=== PATIENT | female | born 1985 | race Two or more races ===

== ENCOUNTER 2017-01-31 13:01 | Emergency (ER) | payer BC ==
[~2017-01-31] VITALS: Ht 170.2 cm; Wt 45.4 kg
[2017-01-31 13:06] VITALS: BP_SYST 160
[2017-01-31] MEDS ORDERED: NACL 0.9% 1,000 ML IV ONE ×2 (13:17→13:30)
--- NOTE | 2017-01-31 13:17 | NUR ---
Patient to ER bed 05 to gown for evaluation. Side rails up.
--- NOTE | 2017-01-31 13:18 | NUR ---
Pt complains of severe abdominal pain for the past 3 days. Pt states she has been having this feeling for 5 years and pain to abdomen "comes and goes." Pt states she is constantly in and out of the hospital and now has an MRI appointment on the 11 of February to further look into abdominal issue. Pt is nauseous and has vomited today. Pt states her stool is loose but is painful when using the restroom. No other injuries/complaints per patient or noted.
--- NOTE | 2017-01-31 13:19 | NUR ---
ER Dr. Rollins at bedside examining patient.
[2017-01-31] MEDS ORDERED: HYDROmorphone 1 MG INJ. 1 MG/ML AMPUL IVP ONE ×2 (13:30→15:30)
[2017-01-31] MEDS ORDERED: ONDANSETRON HCL 4 MG/2 ML VIAL IVP ONE (13:30)
[2017-01-31 13:41] LABS: BASOPHILS # (AUTO) 0.1 K/uL (0.0-0.2); BASOPHILS % (AUTO) 1.4 % (0.0-2.0); EOSINOPHILS # (AUTO) 0.1 K/uL (0.0-0.4); EOSINOPHILS % (AUTO) 1.4 % (0.0-4.0); HEMATOCRIT 43.6 % (36-48); HEMOGLOBIN 14.9 g/dL (12.0-16.0); LYMPHOCYTES # (AUTO) 1.1 K/uL (1.0-5.5); LYMPHOCYTES % (AUTO) 18.1 % (20.5-51.5); MEAN CORPUSCULAR HEMOGLOBIN 30 pg (27-31); MEAN CORPUSCULAR HGB CONC 34 % (32-36); MEAN CORPUSCULAR VOLUME 89 fL (79.0-98.0); MONOCYTES # (AUTO) 0.3 K/uL (0.0-1.0); MONOCYTES % (AUTO) 5.4 % (1.7-9.3); NEUTROPHILS # (AUTO) 4.3 K/uL (1.8-7.7); NEUTROPHILS % (AUTO) 73.7 % (40.0-70.0); PLATELET COUNT (AUTO) 169 K/uL (130-430); RED BLOOD CELL COUNT(AUTO) 4.89 MIL/uL (4.2-6.2); RED CELL DISTRIBUTION WIDTH 12.6 % (9.0-15.0); WHITE BLOOD COUNT (AUTO) 5.9 K/uL (4.8-10.8)
--- NOTE | 2017-01-31 13:46 | NUR ---
medications were given, pt tolerated well. No adverse reaction, will continue to monitor.
[2017-01-31 13:49] LABS: CALCIUM 9.7 mg/dL (8.4-11.0); CREATININE 0.54 mg/dL (0.55-1.30); POTASSIUM 4.2 mmol/L (3.5-5.1)
[2017-01-31 13:53] LABS: PROTHROMBIN TIME 10.2 SECS (9.5-12.5)
[2017-01-31 13:54] LABS: ALBUMIN 4.7 g/dL (3.4-4.8); TOTAL BILIRUBIN 0.7 mg/dL (0.0-1.0)
[2017-01-31 14:03] LABS: BILIRUBIN,URINE 1+ (NEGATIVE); BLOOD, URINE 2+ (NEGATIVE); CLARITY/URINE CLEAR (CLEAR); COLOR,URINE YELLOW (YELLOW); GLUCOSE,URINE NEGATIVE (NEGATIVE); KETONES,URINE TRACE (NEGATIVE); LEUKOCYTE ESTERASE ,URINE TRACE (NEGATIVE); NITRITE, URINE NEGATIVE (NEGATIVE); PH,URINE 5.5 (5.0-8.0); PROTEIN URINE TRACE (NEGATIVE); UROBILINOGEN,URINE 0.2 (0.2-1.0)
[2017-01-31 14:11] LABS: BACTERIA,URINE FEW /HPF (None Seen)
[2017-01-31 14:12] LABS: MUCUS,URINE 1+ /LPF (None Seen)
[2017-01-31] MEDS ORDERED: DIPHENHYDRAMINE INJ 50 MG/ML VIAL IVP ONE (14:15)
--- NOTE | 2017-01-31 14:16 | NUR ---
Pt complained of being itchy, Dr. Rollins made aware. MD ordered medication for patient.
--- NOTE | 2017-01-31 14:30 | NUR ---
Medication was given, pt tolerated well. No adverse reaction, will continue to monitor.
--- NOTE | 2017-01-31 15:02 | NUR ---
ER Dr. Rollins at bedside explaining results to patient.
--- NOTE | 2017-01-31 15:54 | NUR ---
Patient given written and verbal discharge instructions and verbalizes understanding. ER MD discussed with patient the results and treatment provided. Patient in stable condition. ID arm band removed. IV catheter removed intact and dressing applied, no active bleeding. Rx of Zofran, Tylenol with codeine given. Patient educated on pain management and to follow up with PMD. Pain Scale 4. Dr. Rollins is aware, pain medications given here and prescription home. Informed family member patient was recently given pain medication and is fall risk. Instructed family member to assist patient with ambulation to car and at home. Family member verbalized understanding. Opportunity for questions provided and answered.
== END 2017-01-31 15:54 | disposition home or self-care (01) ==
LOC: MERGE 13:01 → SED 13:01
DX: G89.29 Other chronic pain (principal); R10.9 Unspecified abdominal pain; Z88.5 Allergy status to narcotic agent; Z90.49 Acquired absence of other specified parts of digestive tract
CPT/HCPCS: 36415; 80053; 81000; 81025; 82150; 83690; 85025; 85610; 85730; 87086; 96361; 96374; 96375; 96376; 99284; J1170; J1200; J2405; J7030

== ENCOUNTER 2017-02-01 03:11 | Emergency (ER) | payer BC ==
[~2017-02-01] VITALS: Ht 170.2 cm; Wt 56.7 kg
[2017-02-01 03:23] VITALS: BP_SYST 134
--- NOTE | 2017-02-01 04:17 | NUR ---
Patient to ER bed 7 to gown for evaluation. Side rails up. Report given to SHIRA VALE.
--- NOTE | 2017-02-01 04:18 | NUR ---
PT IN BED 7 WITH C/O ABDOMINAL PAIN, DR ESCOBEDO AWARE.
--- NOTE | 2017-02-01 04:20 | NUR ---
ER at bedside examining patient.
[2017-02-01] MEDS ORDERED: ONDANSETRON HCL 4 MG/2 ML VIAL IVP ONE (04:30)
[2017-02-01] MEDS ORDERED: NACL 0.9% 1,000 ML IV ONE (04:30)
[2017-02-01] MEDS ORDERED: HYDROmorphone 1 MG INJ. 1 MG/ML AMPUL IVP ONE (04:30)
--- NOTE | 2017-02-01 04:30 | NUR ---
# 20 gauge angiocath placed to LAC. Use of asceptic technique. Opsite placed over site. Blood return noted. Blood for lab drawn from site. Flushed with 10 cc of normal saline. No evidence of infiltration noted. Patient tolerated well.
--- NOTE | 2017-02-01 05:00 | NUR ---
MEDICATION GIVEN PER MD ORDERS , TOLERATED WELL.
--- NOTE | 2017-02-01 05:05 | NUR ---
DR ESCOBEDO AWARE.
--- NOTE | 2017-02-01 05:05 | NUR ---
PT C/O ITCHING STATED "I FORGOT TO TELL THE DOCTOR, DILAUDID MAKES ME ITCH, CAN I HAVE BENADRYL PLEASE?"
[2017-02-01] MEDS ORDERED: DIPHENHYDRAMINE INJ 50 MG/ML VIAL IVP ONE (05:15)
--- NOTE | 2017-02-01 06:15 | NUR ---
Patient resting quietly. No acute distress noted. Vital signs within normal range.
[2017-02-01] MEDS ORDERED: KETOROLAC TROMETHAMINE 60 MG/2 ML VIAL IM ONE (07:15)
--- NOTE | 2017-02-01 07:18 | NUR ---
Pt was given pain medication, pt tolerated well. No adverse reaction, will continue to monitor.
--- NOTE | 2017-02-01 07:41 | NUR ---
Pt does not want to go home because she is scared she will be in pain again. Informed Dr. Jaimes. Dr. Jaimes spoke with admitting doctor and admitting doctor wants a CT scan for patient. Patient refused CT scan, due to her physician advising her not to get anymore done. Pt states she has an MRI appointment on February 11.
--- NOTE | 2017-02-01 07:42 | NUR ---
ER Dr. Jaimes at bedside speaking with patient.
--- NOTE | 2017-02-01 08:28 | NUR ---
Patient given written and verbal discharge instructions and verbalizes understanding. ER MD discussed with patient the results and treatment provided. Patient in stable condition. ID arm band removed. IV catheter removed intact and dressing applied, no active bleeding. No Rx given. Patient educated on pain management and to follow up with PMD. Pain Scale 4. Dr. Jaimes is aware, Medications were given here. Pt was in ER yesterday and was given prescriptions, advised patient to go to pharmacy and get prescriptions for pain. Opportunity for questions provided and answered.
[2017-02-01] MEDS ORDERED: LIDOCAINE 1%, 20 ML MDV 20 ML ONE (16:28)
== END 2017-02-01 08:28 | disposition home or self-care (01) ==
LOC: SED 03:11 → MERGE 03:11 → SED 08:28
DX: G89.29 Other chronic pain (principal); R10.84 Generalized abdominal pain; R11.0 Nausea; Z90.49 Acquired absence of other specified parts of digestive tract; Z88.5 Allergy status to narcotic agent
CPT/HCPCS: 96361; 96372; 96374; 96375; 99284; J1170; J1200; J1885; J2001; J2405; J7030

== ENCOUNTER 2017-02-05 12:42 | Emergency (ER) | payer BC ==
[~2017-02-05] VITALS: Ht 170.2 cm; Wt 56.7 kg
[2017-02-05 12:49] VITALS: BP_SYST 144
--- NOTE | 2017-02-05 13:00 | NUR ---
BROUGHT BACK TO BED #7 AND TRIAGED. REPORT GIVEN TO JENNIE
--- NOTE | 2017-02-05 13:00 | NUR ---
Pt report received from SHIRA Dunaway. Pt c/o mid abdominal pain with nausea x 3 years, worse today. No active vomiting noted. Family member at bedside.
[2017-02-05] MEDS ORDERED: NACL 0.9% 1,000 ML IV ONE (13:24)
[2017-02-05] MEDS ORDERED: DIPHENHYDRAMINE INJ 50 MG/ML VIAL IVP ONE (13:30)
--- NOTE | 2017-02-05 13:50 | NUR ---
# 20 gauge angiocath placed to . Use of asceptic technique. Opsite placed over site. Blood return noted. Blood for lab drawn from site. Flushed with 10 cc of normal saline. No evidence of infiltration noted. Patient tolerated well.
[2017-02-05 14:30] LABS: BASOPHILS % (AUTO) 0.4 % (0.0-2.0); EOSINOPHILS # (AUTO) 0.1 K/uL (0.0-0.4); EOSINOPHILS % (AUTO) 1.8 % (0.0-4.0); HEMATOCRIT 44.4 % (36-48); HEMOGLOBIN 14.6 g/dL (12.0-16.0); LYMPHOCYTES # (AUTO) 1.2 K/uL (1.0-5.5); LYMPHOCYTES % (AUTO) 20.1 % (20.5-51.5); MEAN CORPUSCULAR HEMOGLOBIN 30 pg (27-31); MEAN CORPUSCULAR HGB CONC 33 % (32-36); MEAN CORPUSCULAR VOLUME 92 fL (79.0-98.0); MONOCYTES # (AUTO) 0.4 K/uL (0.0-1.0); MONOCYTES % (AUTO) 6.4 % (1.7-9.3); NEUTROPHILS # (AUTO) 4.3 K/uL (1.8-7.7); NEUTROPHILS % (AUTO) 71.3 % (40.0-70.0); PLATELET COUNT (AUTO) 204 K/uL (130-430); RED BLOOD CELL COUNT(AUTO) 4.84 MIL/uL (4.2-6.2); RED CELL DISTRIBUTION WIDTH 12.6 % (9.0-15.0)
[2017-02-05] MEDS ORDERED: ONDANSETRON HCL 4 MG/2 ML VIAL IVP ONE (14:30)
[2017-02-05] MEDS ORDERED: HYDROmorphone 1 MG INJ. 1 MG/ML AMPUL IVP ONE (14:30)
[2017-02-05 14:45] LABS: CALCIUM 9.3 mg/dL (8.4-11.0); CREATININE 0.58 mg/dL (0.55-1.30); POTASSIUM 3.5 mmol/L (3.5-5.1)
[2017-02-05 14:49] LABS: ALBUMIN 4.7 g/dL (3.4-4.8); TOTAL BILIRUBIN 0.7 mg/dL (0.0-1.0)
[2017-02-05 15:18] VITALS: BP_SYST 138
--- NOTE | 2017-02-05 15:18 | NUR ---
Patient given written and verbal discharge instructions and verbalizes understanding. ER MD discussed with patient the results and treatment provided. Patient in stable condition. ID arm band removed. IV catheter removed intact and dressing applied, no active bleeding. Rx of Zofran and Protonix given. Patient educated on pain management and to follow up with PMD. Pain Scale 3/10. Opportunity for questions provided and answered.
== END 2017-02-05 15:18 | disposition home or self-care (01) ==
LOC: SED 12:42
DX: R10.9 Unspecified abdominal pain (principal); Z88.5 Allergy status to narcotic agent
CPT/HCPCS: 36415; 74000; 76700; 80053; 83690; 85025; 96361; 96374; 96375; 99285; J1170; J1200; J2405; J7030

== ENCOUNTER 2017-08-01 05:17 | Inpatient (IN) | payer BC ==
[~2017-08-01] VITALS: Ht 170.2 cm; Wt 60.0 kg
--- NOTE | 2017-08-01 05:19 | NUR ---
Patient to ER bed 7 to gown for evaluation. Side rails up. Report given to Nicolette SILVA.
[2017-08-01 05:20] VITALS: BP_SYST 153
[2017-08-01] MEDS ORDERED: NACL 0.9% 1,000 ML IV ONE ×2 (05:20→05:45)
--- NOTE | 2017-08-01 05:25 | NUR ---
Patient to ER C/O severe generalized abdominal pain non/radiating 10/10and nausea with dry heaving, foamy scant sputum. Patient states that last time she smiked cannabis was 2 months ago but started again 2 days ago. Denies constipation or diarrhea. AAOx4, unlabored [id number], moderate distress d/t dry heaving.
--- NOTE | 2017-08-01 05:26 | NUR ---
ER MD Gurrola at bedside evaluating the patient
[2017-08-01] MEDS ORDERED: ONDANSETRON HCL 4 MG/2 ML VIAL IVP ONE (05:30)
[2017-08-01] MEDS ORDERED: KETOROLAC TROMETHAMINE 30 MG VIAL IVP ONE (05:30)
--- NOTE | 2017-08-01 05:45 | NUR ---
# 22 gauge angiocath placed to left ac. Use of asceptic technique. Opsite placed over site. Blood return noted. Blood for lab drawn from site including blood cultures and lactic acid. Flushed with 10 cc of normal saline. No evidence of infiltration noted. Patient tolerated well.
[2017-08-01 06:00] LABS: BASOPHILS # (AUTO) 0.1 K/uL (0.0-0.2); BASOPHILS % (AUTO) 1.3 % (0.0-2.0); EOSINOPHILS # (AUTO) 0.2 K/uL (0.0-0.4); EOSINOPHILS % (AUTO) 1.6 % (0.0-4.0); HEMATOCRIT 45.2 % (36-48); HEMOGLOBIN 15.6 g/dL (12.0-16.0); LYMPHOCYTES # (AUTO) 1.6 K/uL (1.0-5.5); LYMPHOCYTES % (AUTO) 16.4 % (20.5-51.5); MEAN CORPUSCULAR HEMOGLOBIN 31 pg (27-31); MEAN CORPUSCULAR HGB CONC 35 % (32-36); MEAN CORPUSCULAR VOLUME 90 fL (79.0-98.0); MONOCYTES # (AUTO) 0.9 K/uL (0.0-1.0); MONOCYTES % (AUTO) 8.8 % (1.7-9.3); NEUTROPHILS # (AUTO) 7.2 K/uL (1.8-7.7); NEUTROPHILS % (AUTO) 71.9 % (40.0-70.0); PLATELET COUNT (AUTO) 238 K/uL (130-430); RED BLOOD CELL COUNT(AUTO) 5.01 MIL/uL (4.2-6.2); RED CELL DISTRIBUTION WIDTH 12.3 % (9.0-15.0)
[2017-08-01 06:10] LABS: BARBITURATE, URINE NEGATIVE (NEG <=200); BENZODIAZEPINE, URINE NEGATIVE (NEG <=150); CANNABINOID, URINE POSITIVE (NEG <=50); COCAINE, URINE NEGATIVE (NEG <=150); METHAMPHETAMINES SCREEN,URINE NEGATIVE (NEG <=500); OPIATE, URINE NEGATIVE (NEG <=100); PHENCYCLIDINE SCREEN,URINE NEGATIVE (NEG <=25); UR TRICYCLIC ANTIDEPRESSANTS NEGATIVE (NEG <=300); URINE AMPHETAMINE NEGATIVE (NEG <=500); URINE METHADONE NEGATIVE (NEG <=200); URINE OXYCODONE SCREEN NEGATIVE (NEG <=100); URINE PROPOXYPHENE SCREEN NEGATIVE (NEG <=300)
[2017-08-01] MEDS ORDERED: DIPHENHYDRAMINE INJ 50 MG/ML VIAL IVP ONE (06:15)
--- NOTE | 2017-08-01 06:15 | NUR ---
Patient C/O pruritus. No rash noted. ER MD Gurrola aware
[2017-08-01 06:27] LABS: CALCIUM 10.2 mg/dL (8.4-11.0); CREATININE 0.86 mg/dL (0.55-1.30); POTASSIUM 3.2 mmol/L (3.5-5.1)
[2017-08-01] MEDS ORDERED: PROCHLORPERAZINE EDISYLATE 10 MG/2 ML VIAL IVP ONE (06:30)
--- NOTE | 2017-08-01 06:31 | NUR ---
patient C/O unrelieved abdominal pain. States "give me something for pain" rates pain 11/16 abdominal generalized. Addendum: 08/01/17 at 0641 by RICK LUIS dunn
[2017-08-01 06:32] LABS: TOTAL BILIRUBIN 0.8 mg/dL (0.0-1.0)
--- NOTE | 2017-08-01 07:01 | NUR ---
Patient care endorsed to Peter SILVA via SBAR
[2017-08-01] MEDS ORDERED: fentaNYL CITRATE/PF 100 MCG/2 ML AMP IVP ONE (07:15)
--- NOTE | 2017-08-01 07:20 | NUR ---
Medication was given, pt tolerated well. No adverse reaction, will continue to monitor.
--- NOTE | 2017-08-01 08:00 | NUR ---
Pt went to radiology in stable condition.
--- NOTE | 2017-08-01 08:05 | NUR ---
Pt returned from radiology in stable condition.
--- NOTE | 2017-08-01 08:08 | NUR ---
Patient will be admitted to care of Dr. Garsia. Admitted to Med Surg unit. Will go to room 108 C. Belongings list completed. Summary report printed. Report will be given at bedside.
--- NOTE | 2017-08-01 08:20 | NUR ---
ADMISSION NOTE Received patient from ER via eladio, received report from JEN SILVA. Patient admitted with diagnosis of NAUSEA AND VOMITING under the care of Dr. Garsia. Patient oriented to hospital routine, call light, toileting and safety-patient verbalized understanding.
[2017-08-01 08:24] VITALS: BP_SYST 137
[2017-08-01] MEDS ORDERED: ESCI10TA PO (08:38)
--- NOTE | 2017-08-01 09:14 | NUR ---
Dr. Garsia Paged Dr. Garsia for pain medication orders. Patient is awake and alert, in alot of pain.report was endorsed by Admission nurse. Patient educated on safety due to receiving pain medication in ER. Patient educated ecdis n navigation operator light for assistance. call light is with. Patient is close to nurses station. waiting for call back.
[2017-08-01] MEDS ORDERED: ACETAMINOPHEN 325 MG TABLET PO PRN ×2 (09:30)
[2017-08-01] MEDS ORDERED: HYDROmorphone 1 MG INJ. 1 MG/ML AMPUL IVP PRN (09:30)
[2017-08-01] MEDS: HYDROmorphone 2 MG/ML VIAL IVP PRN ×3 (09:52→18:46)
--- NOTE | 2017-08-01 10:18 | NUR ---
Consult MD: GI Dr. Chavez called (dr. garcia admissions advisor) Consult reason nausea/vomiting spoke to monica dialed [phone] Garsia
[2017-08-01] MEDS: D5NS 1,000 ML IV SCH (10:21)
--- NOTE | 2017-08-01 10:34 | NUR ---
MADE AWARE THAT k 3.2 NO ORDERS WERE RECEIVED. PATIENT APPEARS TO BE RESTING NO SIGNS OF ANY DISTRESS BREATHING IS EQUAL AND NON LABORED. PATIENT WAS EDUCATED ON PAIN MEDICATION SIDE EFFECTS ON ADMINISTRATION ALL SAFETY PRECAUTIONS ARE IN PLACE. CALL LIGHT IS WITH HER. NO OTHER NEEDS AT THIS TIME.
[2017-08-01 11:51] VITALS: BP_SYST 166
--- NOTE | 2017-08-01 12:10 | NUR ---
PAIN MEDICATION/PAGING Patient complains of pain medicated per order. Patient educated on side effects. Patient complains of itching. Paging Dr. Garsia for order. Patient educated director of national sales light for assistance. Call light is with her. Patient has no other needs at this time. Patient is close to nurses station. Patient denies any SOB, breathing is equal and no labored. will continue to monitor. Addendum: 08/01/17 at 1253 by Linnea Gracia RN [id number] Garsia will follow through, patient is currently sleeping will continue to monitor.
[2017-08-01] MEDS ORDERED: DIPHENHYDRAMINE INJ 50 MG/ML VIAL IM PRN (12:15)
--- NOTE | 2017-08-01 13:20 | NUR ---
Nausea/itching Patient complains of nausea and itching. Medicated per order. Patient is awake and alert, breathing is equal and non labored. Patient educated to use call light for assistance, call light is with her. Patient has all safety precautions in place. Patient is close to nurses station no other needs at this time. will continue to monitor.
[2017-08-01] MEDS: DIPHENHYDRAMINE INJ 50 MG/ML VIAL IVP PRN ×2 (13:21→20:41)
[2017-08-01] MEDS: METOCLOPRAMIDE HCL 10 MG/2 ML VIAL IVP PRN (13:27)
[2017-08-01 15:11] VITALS: BP_SYST 124
--- NOTE | 2017-08-01 15:45 | NUR ---
Pain calling for pain medication Patient appears to be sleeping with both eyes closed breathing is equal and non labored. Patient has all safety precautions in place, call light is with her. Patient is close to nurses station. no other needs at this time. will continue to monitor. Addendum: 08/01/17 at 1943 by Linnea Gracia RN Patient called for pain medication educated after i am finished administering medication to another patient i will be in there to medicate for her pain. when i arrived to her room patient was asleep, no signs of any distress.
[2017-08-01] MEDS ORDERED: PANTOPRAZOLE SODIUM 40 MG/VIAL (PROTONIX) IVP ONE (18:30)
--- NOTE | 2017-08-01 18:50 | NUR ---
RN closing note/pain medication/ scheduled medication Patient is awake and alert, complains of pain medicated per order. Patients vital signs are stable. Patient educated on side effects, and to use call light for assistance, call light is with her. Patient has all safety precautions in place. Patient is close to nurses station. Patient is close to nurses station. Will endorse report to oncoming night nurse at bed side.
[2017-08-01 20:53] VITALS: BP_SYST 132
--- NOTE | 2017-08-01 21:25 | NUR ---
New IV Re start 22 Gauge Right F/A aseptic technique , good blood return tolerated IVF infusing as ordered .
--- NOTE | 2017-08-01 23:15 | NUR ---
BENADRYL 25 MG IVP administer for c/o itching & helpful .
[2017-08-02] MEDS: HYDROmorphone 2 MG/ML VIAL IVP PRN ×4 (00:06→20:04)
[2017-08-02 00:17] VITALS: BP_SYST 138
[2017-08-02] MEDS: D5NS 1,000 ML IV SCH ×2 (02:29→05:30)
--- NOTE | 2017-08-02 02:31 | NUR ---
Hourly Rounding patient awake HOB elevated call starks with patient using cell phone chest movement symmetrical tolerating ice chips po .
--- NOTE | 2017-08-02 02:35 | NUR ---
DILAUDID 2 MG IVP administer for general discomfort & helpful /10 & resting comfortably .
--- NOTE | 2017-08-02 05:36 | NUR ---
Patient Resting this hour is verbally responsive skin dry warm chest movement symmetrical call starks with patient .
[2017-08-02] MEDS: ONDANSETRON HCL 4 MG/2 ML VIAL IVP PRN ×2 (05:46→10:05)
[2017-08-02 06:26] LABS: BASOPHILS % (AUTO) 0.9 % (0.0-2.0); EOSINOPHILS # (AUTO) 0.1 K/uL (0.0-0.4); HEMATOCRIT 35.7 % (36-48); HEMOGLOBIN 12.7 g/dL (12.0-16.0); LYMPHOCYTES # (AUTO) 1.3 K/uL (1.0-5.5); MEAN CORPUSCULAR HEMOGLOBIN 33 pg (27-31); MEAN CORPUSCULAR HGB CONC 36 % (32-36); MEAN CORPUSCULAR VOLUME 92 fL (79.0-98.0); MONOCYTES # (AUTO) 0.6 K/uL (0.0-1.0); MONOCYTES % (AUTO) 13.3 % (1.7-9.3); NEUTROPHILS # (AUTO) 2.8 K/uL (1.8-7.7); NEUTROPHILS % (AUTO) 55.8 % (40.0-70.0); PLATELET COUNT (AUTO) 160 K/uL (130-430); RED BLOOD CELL COUNT(AUTO) 3.87 MIL/uL (4.2-6.2); RED CELL DISTRIBUTION WIDTH 12.6 % (9.0-15.0)
[2017-08-02 06:36] LABS: ALANINE AMINOTRANSFERASE 20 U/L (12-78); ALBUMIN 3.7 g/dL (3.4-4.8); ANION GAP 7 (5-15); ASPARTATE AMINOTRANSFERASE 16 U/L (10-37); CALCIUM 8.2 mg/dL (8.4-11.0); CHLORIDE 104 mmol/L (98-107); CREATININE 0.69 mg/dL (0.55-1.30); GLUCOSE 92 mg/dL (70-99); POTASSIUM 3.2 mmol/L (3.5-5.1); SODIUM SERUM 138 mmol/L (136-145); TOTAL BILIRUBIN 0.5 mg/dL (0.0-1.0); UREA NITROGEN, BLOOD 10 mg/dL (8-21)
[2017-08-02 06:39] LABS: GFR AFRICAN AMERICAN 128 mL/min (>90)
[2017-08-02 06:53] LABS: C-REACTIVE PROTEIN QUANT < 0.2 mg/dL (0-0.5)
[2017-08-02 07:00] LABS: WHITE BLOOD COUNT (AUTO) 4.8 K/uL (4.8-10.8)
--- NOTE | 2017-08-02 07:30 | NUR ---
opening note pt asleep- equal chest rise noted. call light is within reach. bed alarm in place with bed in lowest position. will continue to monitor.
[2017-08-02 07:46] LABS: ERYTHROCYTE SEDIMENTATION RATE 3 MM/HR (0-20)
[2017-08-02] MEDS: PANTOPRAZOLE SODIUM 40 MG/VIAL (PROTONIX) IVP SCH (08:39)
--- NOTE | 2017-08-02 08:39 | NUR ---
ivp protonix given at this time. no distress noted will monitor.
--- NOTE | 2017-08-02 09:57 | NUR ---
med pass pt c/o of abd pain given dilaudid 2 mg ivp administered. will reassess pain
[2017-08-02] MEDS: METOCLOPRAMIDE HCL 10 MG/2 ML VIAL IVP PRN (09:59)
[2017-08-02] MEDS: DIPHENHYDRAMINE INJ 50 MG/ML VIAL IVP PRN (10:10)
[2017-08-02 11:29] VITALS: BP_SYST 96
--- NOTE | 2017-08-02 12:30 | NUR ---
PATIENT RESTING: Patient resting quietly. No acute distress noted. Vital signs within normal range.
[2017-08-02 16:00] VITALS: BP_SYST 100
--- NOTE | 2017-08-02 16:15 | NUR ---
PATIENT RESTING: Patient resting quietly. No acute distress noted. Vital signs within normal range.
[2017-08-02] MEDS ORDERED: CITALOPRAM HYDROBROMIDE 20 MG TABLET PO ONE (17:30)
--- NOTE | 2017-08-02 19:30 | NUR ---
closing note all needs met through shift. safety maintained. care endorsed to night warehouse manager.
[2017-08-02 20:00] VITALS: BP_SYST 128
[2017-08-03] MEDS: ONDANSETRON HCL 4 MG/2 ML VIAL IVP PRN ×2 (00:39→07:36)
[2017-08-03] MEDS: HYDROmorphone 2 MG/ML VIAL IVP PRN ×2 (00:40→07:35)
--- NOTE | 2017-08-03 00:40 | NUR ---
NAUSEA/PAIN MEDICATED WITH DILAUDID FOR C/O 9/10 ABD PAIN. ZOFRAN GIVEN FOR C/O N/V.
[2017-08-03] MEDS: DIPHENHYDRAMINE INJ 50 MG/ML VIAL IVP PRN ×2 (00:55→10:02)
[2017-08-03 01:00] VITALS: BP_SYST 116
[2017-08-03] MEDS ORDERED: ONDANSETRON HCL 4 MG/2 ML VIAL IVP PRN (01:30)
[2017-08-03] MEDS: D5NS 1,000 ML IV SCH ×2 (01:30→02:24)
--- NOTE | 2017-08-03 02:55 | NUR ---
ROUNDS PATIENT RESTING IN BED. BREATHING UNLABORED ON ROOM AIR. IVF INFUSING D5NS @ 100 ML/HR ORDERED. CALL LIGHT WITHIN EASY REACH. BED ALARM ON.
--- NOTE | 2017-08-03 04:31 | NUR ---
ROUNDS PATIENT RESTING IN BED. NO DISTRESS NOTED. CALL LIGHT WITHIN EASY REACH. BED ALARM ON.
--- NOTE | 2017-08-03 07:20 | NUR ---
opening note pt in bed awake, denies any sob. pt states she has abd pain 09/16. pt still refusing bed alarm. will return to take vitals.
[2017-08-03 07:30] VITALS: BP_SYST 133
--- NOTE | 2017-08-03 07:31 | NUR ---
CLOSING NOTES PATIENT AWAKE RESTING IN BED. NO DISTRESS NOTED. NEEDS ATTENDED. IVF CONTINUOUSLY INFUSING ORDERED. CALL LIGHT WITHIN EASY REACH.
[2017-08-03] MEDS: PANTOPRAZOLE SODIUM 40 MG/VIAL (PROTONIX) IVP SCH (08:32)
--- NOTE | 2017-08-03 08:34 | NUR ---
MED PASS PROTONIX IVP GIVEN AT THIS TIME. PT STATED SHE DOES NOT WANT CELEXA- SHE WOULD LIKE TO TAKE IT IN THE EVENING- WILL INFORM MD.
[2017-08-03] MEDS ORDERED: CITALOPRAM HYDROBROMIDE 20 MG TABLET PO SCH (09:00)
--- NOTE | 2017-08-03 10:04 | NUR ---
med pass benadryl given for itchiness. safety maintained. will continue to monitor.
[2017-08-03 10:47] VITALS: BP_SYST 128
[2017-08-03 12:20] VITALS: BP_SYST 128
== END 2017-08-03 11:27 | disposition home or self-care (01) | DRG 918 ==
LOC: SED 05:17 → SMU 07:58
PROVIDERS: ADMIT Internal Medicine Hospice and Palliative Medicine; ATTEND Internal Medicine Hospice and Palliative Medicine
DX: T40.7X1A Poisoning by cannabis (derivatives), accidental (unintentional), initial encounter (principal); D72.829 Elevated white blood cell count, unspecified; F12.10 Cannabis abuse, uncomplicated; K30 Functional dyspepsia; Z88.8 Allergy status to other drugs, medicaments and biological substances; Z88.5 Allergy status to narcotic agent; Z90.49 Acquired absence of other specified parts of digestive tract; Y92.89 Other specified places as the place of occurrence of the external cause
CPT/HCPCS: 36415; 74021; 80053; 80307; 83690-TC; 85025; 85651-TC; 86140; 96361; 96374; 96375; 99285; C9113; J0780; J1170; J1200; J1885; J2405; J2765; J3010; J7030; J7042

== ENCOUNTER 2017-09-08 07:09 | Inpatient (IN) | payer BC ==
[~2017-09-08] VITALS: Ht 170.2 cm; Wt 59.0 kg
[~2017-09-08 07:09] MED LIST: ESCI10TA PO
[2017-09-08 07:10] VITALS: BP_SYST 134
--- NOTE | 2017-09-08 07:10 | NUR ---
BROUGHT BACK TO BED #8 AND TRIAGED. REPORT GIVEN TO JENNIE
--- NOTE | 2017-09-08 07:15 | NUR ---
Pt presents to ER c/o upper middle abdominal pain 9/10 on pain scale x 3 days. Pt also reports nausea, vomiting, diarrhea; denies chest pain or sob. Upon presentation to ER, pt crying in pain, guarding stomach and vomiting into grocery bag she brought from home. Pt in no acute distress, speaking full sentences, AOX4, ambulatory.
--- NOTE | 2017-09-08 07:20 | NUR ---
# 22 gauge angiocath placed to LAC. Use of asceptic technique. Opsite placed over site. Blood return noted. Blood for lab drawn from site. Flushed with 10 cc of normal saline. No evidence of infiltration noted. Patient tolerated well.
--- NOTE | 2017-09-08 07:20 | NUR ---
Note undone in EDM - 09/08/17 at 0745 by [email or web address] # 22 gauge angiocath placed to []. Use of asceptic technique. Opsite placed over site. Blood return noted. Blood for lab drawn from site. Flushed with 10 cc of normal saline. No evidence of infiltration noted. Patient tolerated well.
[2017-09-08] MEDS ORDERED: NACL 0.9% 1,000 ML IV ONE (07:30)
[2017-09-08] MEDS ORDERED: ONDANSETRON HCL 4 MG/2 ML VIAL IVP ONE (07:30)
--- NOTE | 2017-09-08 07:44 | NUR ---
ER at bedside examining patient.
[2017-09-08] MEDS ORDERED: HYDROmorphone 1 MG INJ. 1 MG/ML AMPUL IVP ONE ×2 (07:45→09:30)
[2017-09-08] MEDS ORDERED: DIPHENHYDRAMINE INJ 50 MG/ML VIAL IVP ONE (07:45)
[2017-09-08 07:52] LABS: BASOPHILS # (AUTO) 0.2 K/uL (0.0-0.2); BASOPHILS % (AUTO) 1.6 % (0.0-2.0); EOSINOPHILS # (AUTO) 0.1 K/uL (0.0-0.4); EOSINOPHILS % (AUTO) 0.6 % (0.0-4.0); HEMOGLOBIN 15.2 g/dL (12.0-16.0); LYMPHOCYTES # (AUTO) 1.8 K/uL (1.0-5.5); LYMPHOCYTES % (AUTO) 11.8 % (20.5-51.5); MEAN CORPUSCULAR HEMOGLOBIN 32 pg (27-31); MEAN CORPUSCULAR HGB CONC 35 % (32-36); MEAN CORPUSCULAR VOLUME 92 fL (79.0-98.0); MONOCYTES # (AUTO) 0.5 K/uL (0.0-1.0); MONOCYTES % (AUTO) 3.2 % (1.7-9.3); NEUTROPHILS # (AUTO) 12.6 K/uL (1.8-7.7); NEUTROPHILS % (AUTO) 82.8 % (40.0-70.0); PLATELET COUNT (AUTO) 239 K/uL (130-430); RED BLOOD CELL COUNT(AUTO) 4.78 MIL/uL (4.2-6.2); RED CELL DISTRIBUTION WIDTH 12.1 % (9.0-15.0); WHITE BLOOD COUNT (AUTO) 15.3 K/uL (4.8-10.8)
--- NOTE | 2017-09-08 08:00 | NUR ---
Pt medicated as ordered by Dr. Luke for pain level 10/10 in upper abdomen. Prior to med administration, pt placed on satellite project site monitor and nasal canula @ 2L as requested by Dr. Luke. Pt tolerated well, pt no longer screaming in pain or vomiting. Will continue to monitor.
[2017-09-08 08:01] LABS: CALCIUM 9.6 mg/dL (8.4-11.0); CREATININE 0.79 mg/dL (0.55-1.30); POTASSIUM 3.5 mmol/L (3.5-5.1)
[2017-09-08 08:13] LABS: BILIRUBIN,URINE NEGATIVE (NEGATIVE); BLOOD, URINE 1+ (NEGATIVE); CLARITY/URINE CLEAR (CLEAR); COLOR,URINE YELLOW (YELLOW); GLUCOSE,URINE NEGATIVE (NEGATIVE); KETONES,URINE 2+ (NEGATIVE); LEUKOCYTE ESTERASE ,URINE NEGATIVE (NEGATIVE); NITRITE, URINE NEGATIVE (NEGATIVE); PROTEIN URINE 1+ (NEGATIVE)
[2017-09-08 08:15] LABS: ALBUMIN 4.9 g/dL (3.4-4.8); TOTAL BILIRUBIN 0.5 mg/dL (0.0-1.0)
--- NOTE | 2017-09-08 08:20 | NUR ---
Patient transported to radiology via gurney, accompanied by rad staff.
--- NOTE | 2017-09-08 08:29 | NUR ---
FAMILY AT BEDSIDE.
[2017-09-08 08:39] LABS: BACTERIA,URINE RARE /HPF (None Seen); MUCUS,URINE 3+ /LPF (None Seen); WBC,URINE 0-3 /HPF (0-3); YEAST,URINE None Seen /HPF (None Seen)
[2017-09-08] MEDS ORDERED: NS 100 ML IV ONE (08:45)
[2017-09-08] MEDS ORDERED: KETAMINE HCL IN 0.9 % NACL 30 MG/3 ML SYRINGE IVP ONE (08:45)
[2017-09-08] MEDS ORDERED: KETAMINE HCL 50 MG/ML SYR ONE (08:52)
--- NOTE | 2017-09-08 08:58 | NUR ---
Pt medicated by Dr. Luke with Ketamine 15mg mixed in NS 100cc, medication to be administered over 15min. Rate and dosgae confirmed by Dr. Luke. Pyxis only had 50mg/1ml syringes available, only 15mg (0.3ml) was administered to pt, dosage confirmed by Dr. Luke. Pt placed on 2L nasal canula and on personnel monitor.
[2017-09-08] MEDS ORDERED: PIPERACILLIN/TAZO 3.38 GM in D5W 50 ML IV ONE (09:30)
[2017-09-08] MEDS ORDERED: NS 1000 ML IV.SOLN IV ONE (09:30)
[2017-09-08] MEDS ORDERED: VANCOMYCIN HCL 1,000 MG in D5W 250 ML IV ONE (09:30)
[2017-09-08] MEDS ORDERED: VANCOMYCIN HCL 1000 MG/VIAL IV ONE (09:44)
[2017-09-08] MEDS ORDERED: PIPERACILLIN/TAZOBACTAM 3.375 GM/VIAL (ZOSYN) IV ONE (09:44)
--- NOTE | 2017-09-08 09:50 | NUR ---
Dr. Luke at bedside speaking to pt discussing lab and diagnostic results.
--- NOTE | 2017-09-08 10:10 | NUR ---
Patient will be admitted to care of Dr. Garsia. Admitted to medsurg unit. Will go to room 114b. Belongings list completed. Summary report printed. Report will be given at bedside. Transfer to [facility]. IV present no sign or symptom of infiltration.
--- NOTE | 2017-09-08 10:18 | NUR ---
Medication reconciliation completed with information provided by pt. Any prior medication reconciliation on file was reviewed and corrected.
--- NOTE | 2017-09-08 10:25 | NUR ---
CONSULTATION PAGED/CALLED Reason for Consultation: [] COLITIS Person Who was Notified: [] PIPE Consulting Physician: [] DR Emily WOODS Tank Cleaning Supervisor Specialty: [] GI Ordering Physician: [] DR GALLAGHER
--- NOTE | 2017-09-08 10:45 | NUR ---
ADMISSION NOTE Received patient from ER via gurney. Patient admitted with diagnosis of colitis. Patient is awake, alert, oriented X 4. Patient oriented to hospital room, call light, toileting, pain management and safety-teach back done. Patient informed that Nirmala will be her nurse and that their room number is 114b. Personal belongings checked and Belongings List documented. Call light within reach.
[2017-09-08 10:50] VITALS: BP_SYST 119
--- NOTE | 2017-09-08 10:55 | NUR ---
ATTENDING MD DR GALLAGHER WAS CALLED, RE: PRN PAIN MEDICATION, PT IS IN SEVERE PAIN, CRYING. SPOKE TO ISIDRO
[2017-09-08] MEDS: ONDANSETRON HCL 4 MG/2 ML VIAL IVP PRN ×4 (11:25→23:30)
[2017-09-08] MEDS: HYDROmorphone 2 MG/ML VIAL IVP PRN ×4 (11:26→22:46)
--- NOTE | 2017-09-08 11:26 | NUR ---
Initial physical assessment: Patient awake, alert and oriented. Stable. In severe pain earlier and paged Dr. Garsia with new order. Able to move lower and upper extremities. Call light within reach. Safety measures in placed.
[2017-09-08] MEDS: D5NS 1,000 ML IV SCH ×2 (12:51→22:36)
--- NOTE | 2017-09-08 12:59 | NUR ---
rounds: patient sleeping. no distress noted.
[2017-09-08] MEDS: HYDROmorphone 1 MG INJ. 1 MG/ML AMPUL IVP PRN (13:09)
--- NOTE | 2017-09-08 15:00 | NUR ---
behavior: patient crying for abdominal pain, becoming loud. Dilaudid pain meds given thru ivp.
--- NOTE | 2017-09-08 16:16 | NUR ---
rounds: patient sleeping. no distress noted.
--- NOTE | 2017-09-08 16:21 | NUR ---
rounds: patient sleeping. no distress noted.
--- NOTE | 2017-09-08 18:31 | NUR ---
Closing notes: Patient on bed sleeping. Stable. Needs attended. Safety measures in placed. Call light within reach. Report will be given tonight shift.
[2017-09-08 18:50] VITALS: BP_SYST 118
[2017-09-08 20:00] VITALS: BP_SYST 123
--- NOTE | 2017-09-08 20:00 | NUR ---
Initial Note Received patient awake, alert and oriented with family at the bedside. No SOB noted. Denies any n/v at this time but complain of moderate abdominal pain, grimacing noted. IVF infusing. Comfort measures provided. NPO and patient is aware. Ambulates to the bathroom by herself with minimal assist. Care and monitoring will be provided per protocol. Call light within reach. Bed alarm on and at lowest position at all times. Needs attended. Kept warm and comfortable.
--- NOTE | 2017-09-08 22:45 | NUR ---
RN Note Medicated for pain and nausea per patient's request. No vomiting at this time. Ambulated to the bathroom with steady gait. No SOB noted. Comfort measures provided. Kept warm and comfortable. Bed alarm on and at lowest position. Call light within reach.
[2017-09-09] VITALS (7 sets, daily range): BP systolic 107–132
--- NOTE | 2017-09-09 | NUR ---
RN Note Sleeping at this time. No SOB or grimacing noted. IVF infusing.
--- NOTE | 2017-09-09 02:10 | NUR ---
RN Note Asleep. Moves occasionally. IVF infusing. No distress noted.
[2017-09-09] MEDS: HYDROmorphone 2 MG/ML VIAL IVP PRN ×6 (02:43→22:33)
--- NOTE | 2017-09-09 02:45 | NUR ---
RN Note Patient awake and moaning from abdominal pain. Medicated for pain and comfort measures provided. Will continue to monitor.
--- NOTE | 2017-09-09 04:06 | NUR ---
RN Note Asleep but easily arousable. Complain of mild abdominal pain but denies any n/v. Repositions herself. IVF infusing. Ice packs provided. Kept comfortable.
--- NOTE | 2017-09-09 06:00 | NUR ---
End Note Afebrile. Vs stable. Medicated for pain twice throughout the night, one time for nausea. NPO. Ambulatory with steady gait. Refused to have bed alarm on after midnight. IVF infusing. Needs attended. Care and monitoring provided per protocol. Call light within reach. Bed at lowest position at all times. Kept warm and comfortable.
[2017-09-09] MEDS: ONDANSETRON HCL 4 MG/2 ML VIAL IVP PRN ×3 (06:34→18:31)
--- NOTE | 2017-09-09 06:51 | NUR ---
End Note-cont Medicated for pain and nausea per patient's request. Will continue to monitor. Ambulated to the bathroom with steady gait. No SOB noted.
--- NOTE | 2017-09-09 07:30 | NUR ---
Opening Note: Patient laying in bed resting. Patient denies pain and discomfort. Patient denies nausea and vomiting. Breathing is even and unlabored with no distress noted. IV patent and intact running IV fluids per MD order. Safety precautions in place; bed in lowest position, wheels locked, side rails x3, bed alarm activated and call light within reach. No current needs. Will continue to monitor.
[2017-09-09] MEDS: D5NS 1,000 ML IV SCH ×2 (08:35→18:31)
[2017-09-09] MEDS ORDERED: LORazepam 2 MG/ML VIAL IVP ONE ×3 (08:45)
--- NOTE | 2017-09-09 10:11 | NUR ---
Rounding: Patient laying in bed asleep, at bedside. No distress noted. Will continue to monitor.
--- NOTE | 2017-09-09 12:30 | NUR ---
Rounding: Patient laying in bed resting. Patient denies pain and discomfort. Patient complains of nausea, will administer PRN nausea meds. Patient vomited x2. Morning medications tolerated well. No other needs. Will administer Zofran and reassess.
--- NOTE | 2017-09-09 14:25 | NUR ---
Nausea Reassessment: Patient sates that she is feeling less nauseous.
--- NOTE | 2017-09-09 14:35 | NUR ---
Rounding: Patient crying out in pain, will administer PRN pain medication. Will reassess. Will continue to monitor patient.
--- NOTE | 2017-09-09 16:10 | NUR ---
Rounding: Patient sitting up in bed, patient vomiting. Dr. Garsia made aware that patient has vomited several times today. No orders received. Patient repositioned and comforted. No needs at this time. Will continue to monitor.
--- NOTE | 2017-09-09 17:43 | NUR ---
Paging Dr. Garsia: Paging Dr. Garsia, awaiting callback.
--- NOTE | 2017-09-09 18:05 | NUR ---
Spoke to Dr. Garsia: Spoke to Dr. Garsia, informed Dr. Garsia that Dr. Elliott had prescribed a one time order of Ativan this morning. Per patient "It helped me a lot, I want more Ativan to help me relax." Per Dr. Seth "I will put the order in." No orders received.
--- NOTE | 2017-09-09 18:56 | NUR ---
Closing Note: Patient laying in bed resting. Patient denies pain and discomfort. Patient denies nausea and vomiting. Breathing is even and unlabored with no distress noted. IV patent and intact running IV fluids per MD order. Safety precautions in place; bed in lowest position, wheels locked, side rails x3, bed alarm activated and call light within reach. All needs met. Will endorse plan of care to NOC, nurse.
--- NOTE | 2017-09-09 19:20 | NUR ---
change of shift.pt,.presents quiescent affect;calm,somnolent.general status stable.respiratory status stable. iv fluids infusing.pt has received;the administration dilaudid;2mg ivp/zofran:@1830p.iv fluids infusing. call light/telephone w/in the w/in pt's reach.
[2017-09-09] MEDS: LORazepam 2 MG/ML VIAL IVP PRN (20:03)
--- NOTE | 2017-09-09 20:05 | NUR ---
pt.assessed.v/s assessed;values w/in normal limits.pt.has requested ativan.i have administered ativan:1mg ivp. i apprised the pt.that hte diet status is npo:nsg will provide ice chips.pt.had presented emesis:clear.i have cleaned the wash basin.i have provided the pt. w/cup of ice.i have provided trash bags extra boxes:tissues. general status stable.respiratory status stable.call light/telephone w/in the pt's reach. Addendum: 09/09/17 at 2220 by Parth Nolan RN pt.capable to reposition self.
--- NOTE | 2017-09-09 22:00 | NUR ---
pt.assessed.pt,.presents quiescent affect;calm,somnolent.general status stable,respiratory status stable. iv fluids infusing.i have checked the wash basin:absent emesis.call light/telephone w/in the pt's reach. Addendum: 09/09/17 at 2220 by Parth Nolan RN pt.capable to reposition self.
--- NOTE | 2017-09-09 22:35 | NUR ---
pt.requested medication;pain,.i have administered dilaudid;2mg ivp.pt.required assistance to the restroom. i have assisted the pt.to the restroom.ans assisted the pt's return to bed.i have provided a blanket;warmed to the pt.pt.presents no further requests@this hour.to assessed the pain med efficacy per pain mgx protocol. call light/telephone place w/in the pt's reach.
--- NOTE | 2017-09-10 00:10 | NUR ---
pt.assessed.v/s assessed;values w/in normal limits.pt.presents quiescent affect;calm,somnolent;@this hour no c/o pain,nausea.i have assessed the basin;no emesis.general status stable.respiratory status stable.iv fluids infusing.call light/telephone w/in the opt's reach.
[2017-09-10] MEDS: HYDROmorphone 2 MG/ML VIAL IVP PRN ×5 (02:24→23:26)
[2017-09-10] MEDS: ONDANSETRON HCL 4 MG/2 ML VIAL IVP PRN ×4 (02:28→23:26)
--- NOTE | 2017-09-10 02:30 | NUR ---
pt.assessed.pt.requested medication;pain/nausea.i have administered dilaudid;2mg ivp,zofran;4mg ivp.i have changed the iv fluids bag.i have cleaned the basin;emesis.i have provided cup,of ice chips.call light/telephone w/in the pt's reach. pt.capable to reposition self.
[2017-09-10] MEDS: D5NS 1,000 ML IV SCH ×3 (02:37→23:14)
--- NOTE | 2017-09-10 04:00 | NUR ---
pt.assessed,pt.presents quiescent affect;calm,somnolent.iv fluids access re-routed;alarming.located in the lt. antecubital fossa;pt.refused to re-establish iv access @another site.pt.presents quiescent affect;Apiot. the administration dilaudid/zofran.general status stable.respiratory status stable.pt.capable to reposition self. call light/telephone w/in the pt's reach.
--- NOTE | 2017-09-10 06:39 | NUR ---
pt.assessed.pt.requested medication;pain.i have administered dialudid;2mg ivp.to f/u re:pain efficacy per pain mgx protocol.i have inquired if the pt.presents requests:pt.requested ice chips.i have provided the ice chips. iv fluids infusing.call light/telephone w/in the pt's reach.
--- NOTE | 2017-09-10 08:00 | NUR ---
OPENING NOTES, RECEIVED PT IN BED, PT IS AAOX4, DENIES PAIN, NO N/V. PT VOMITED EARLIER. NO SOB, NO RESP DISTRESS. VITALS WNL, PT HAS NO FEVER. PT HAS IV ACCESS ON LEFT AC, IV FLUIDS INFUSING WELL. WITH NO S./S OF INFILTRATION OF SWELLING. SAFETY PRECAUTION IN PLACE. CALL LIGHT IN REACH. BED ALARM ON, BED IN LOWEST POSITION. ENCOURAGED PT TO CALL FOR ASSIST AND PAIN MEDS OR ANY CONCERNS.
[2017-09-10 08:05] VITALS: BP_SYST 125
--- NOTE | 2017-09-10 08:05 | NUR ---
dr barksdale here and seen and examined pt. new orders given.
[2017-09-10] MEDS ORDERED: DIPHENHYDRAMINE INJ 50 MG/ML VIAL IVP ONE (08:15)
--- NOTE | 2017-09-10 11:00 | NUR ---
pt in bed, denies pain and n/v, pt stated she is fine. encouraged to call for assist adn pain med, call light in reach.
--- NOTE | 2017-09-10 11:36 | NUR ---
Dietitian Recommendations *Recommend continue NPO per MD *Recommend advance diet when medically appropriate. Please see Nutritional Assessment for details. [employer]
[2017-09-10 12:00] VITALS: BP_SYST 126
[2017-09-10 12:16] LABS: BASOPHILS # (AUTO) 0.2 K/uL (0.0-0.2); BASOPHILS % (AUTO) 3.8 % (0.0-2.0); EOSINOPHILS # (AUTO) 0.1 K/uL (0.0-0.4); EOSINOPHILS % (AUTO) 1.5 % (0.0-4.0); HEMATOCRIT 35.7 % (36-48); HEMOGLOBIN 12.8 g/dL (12.0-16.0); LYMPHOCYTES # (AUTO) 1.1 K/uL (1.0-5.5); LYMPHOCYTES % (AUTO) 26.1 % (20.5-51.5); MEAN CORPUSCULAR HEMOGLOBIN 32 pg (27-31); MEAN CORPUSCULAR HGB CONC 36 % (32-36); MEAN CORPUSCULAR VOLUME 89 fL (79.0-98.0); MONOCYTES # (AUTO) 0.3 K/uL (0.0-1.0); MONOCYTES % (AUTO) 7.1 % (1.7-9.3); NEUTROPHILS # (AUTO) 2.6 K/uL (1.8-7.7); NEUTROPHILS % (AUTO) 61.5 % (40.0-70.0); PLATELET COUNT (AUTO) 135 K/uL (130-430); RED CELL DISTRIBUTION WIDTH 11.6 % (9.0-15.0); WHITE BLOOD COUNT (AUTO) 4.3 K/uL (4.8-10.8)
[2017-09-10 12:27] LABS: CALCIUM 7.7 mg/dL (8.4-11.0); CREATININE 0.47 mg/dL (0.55-1.30)
[2017-09-10 12:32] LABS: ALBUMIN 3.4 g/dL (3.4-4.8); TOTAL BILIRUBIN 0.5 mg/dL (0.0-1.0)
--- NOTE | 2017-09-10 15:00 | NUR ---
SEEN PT IN BED, DENIES PAIN AND NAUSEA THIS TIME. PT C/O OF SLIGHT ITCHING ALL OVER HER BODY, TOLD PT THAT IT IS PROBABLY DUE TO THE PAIN MEDICATION DILAUDID, TOLD PT THAT I CAN CALL THE MD TO CHANGE THE PAIN MEDICATION. PT STATED THAT ITCHING IS TOLERABLE AND WILL INFORM ME IF IT BOTHERS HER MUCH. WILL CONT TO MONITOR PT.
[2017-09-10 16:00] VITALS: BP_SYST 104; BP_SYST 132
--- NOTE | 2017-09-10 17:05 | NUR ---
PT GIVEN ZOFRAN AND DILAUDID FOR PAIN , 10/10 ON HER ABDOMEN. PT TEARFUL DUE TO PAIN. WILL CONT TO MONITOR.
--- NOTE | 2017-09-10 18:09 | NUR ---
PT IN BED, EYES CLOSED, NO S/S OF PAIN, NO RESP DISTRESS. CHEST RISE EVEN AND UNLABORED. CALL LIGHT IN REACH. WILL CONT TO MONITOR.
--- NOTE | 2017-09-10 18:21 | NUR ---
Paged Dr. Garsia dialed [phone].
--- NOTE | 2017-09-10 19:15 | NUR ---
OPENING NOTES Late entry due to patient care. Bedside report received from day shift nurse. Patient received lying in bed, sleeping. No s/s of acute distress noted. Breathing is even and unlabored. IVF infusing well. Call light with patient. Bed alarm is on. Bed is locked and at lowest position. Will continue to monitor.
[2017-09-10] MEDS: POTASSIUM CHLORIDE 20 MEQ TAB.PRT.SR PO SCH ×2 (19:57→20:00)
[2017-09-10 20:00] VITALS: BP_SYST 144
[2017-09-10] MEDS: HYDROmorphone 1 MG INJ. 1 MG/ML AMPUL IVP PRN (21:01)
--- NOTE | 2017-09-10 21:01 | NUR ---
COMPLAIN OF PAIN Patient complained of 6/10 abdominal pain. Dilaudid administered per PRN orders. Call light with patient. Bed alarm is off as per patient's request despite being educated on its purpose, will continue to encourage throughout shift. Will continue to monitor and reassess.
[2017-09-10] MEDS: LORazepam 2 MG/ML VIAL IVP PRN (22:03)
--- NOTE | 2017-09-10 22:16 | NUR ---
Paged Dr. Garsia dialed [phone], s/w Gill.
--- NOTE | 2017-09-10 22:18 | NUR ---
DR GALLAGHER CALLED BACK Dr. Gallagher made aware that patient is still vomiting and is unable to swallow PO medication, KDUR. MD gave orders for 20 meq IV one time, and to have Zofran changed from Q6 to Q4. Will carry out orders.
[2017-09-10] MEDS ORDERED: POTASSIUM CHLORIDE 20 MEQ in NS 250 ML IV SCH (23:00)
[2017-09-10] MEDS ORDERED: KCL 20 mEq in 100 mL (PREMIX) 100 ML IV ONE (23:02)
--- NOTE | 2017-09-10 23:26 | NUR ---
COMPLAIN OF PAIN AND VOMITING Patient complained of 7/10 abdominal pain and vomiting at this time. Dilaudid and Zofran administered per PRN orders. Call light with patient. IVF infusing well, IV site is patent, no signs of infection or infiltration. Will co to monitor and reassess.
[2017-09-11 01:30] VITALS: BP_SYST 117
--- NOTE | 2017-09-11 01:30 | NUR ---
ROUNDS Patient in bed sleeping at this time. NO s/s of acute distress noted. Breathing is even and unlabored. IVF infusing well. Call light with patient. Will continue to monitor.
[2017-09-11] MEDS: HYDROmorphone 2 MG/ML VIAL IVP PRN ×2 (03:17→10:15)
[2017-09-11] MEDS: ONDANSETRON HCL 4 MG/2 ML VIAL IVP PRN (03:17)
--- NOTE | 2017-09-11 03:17 | NUR ---
COMPLAIN OF PAIN AND NAUSEA Patient complain of 7/10 abdominal pain at this time and feeling nauseated. Dilaudid and Zofran administered per PRN orders. Call light with patient. Will continue to monitor and reassess.
--- NOTE | 2017-09-11 05:00 | NUR ---
ROUNDS Patient in bed sleeping at this time. No s/s of acute distress noted. Chest rise and fall even bilaterally. IVF infusing well. Call light with patient. Will continue to monitor.
[2017-09-11] MEDS: HYDROmorphone 1 MG INJ. 1 MG/ML AMPUL IVP PRN ×3 (06:28→19:46)
[2017-09-11] MEDS: LORazepam 2 MG/ML VIAL IVP PRN (06:29)
--- NOTE | 2017-09-11 06:39 | NUR ---
CLOSING NOTES Patient in bed at this time, resting with eyes closed, appears to be sleeping. No signs of discomfort noted. Chest rise and fall even bilaterally. IVF infusing well, IV site shows no signs of infiltration or infection. All of patient's needs met throughout shift. Fall and safety precautions maintained throughout shift. Will continue to monitor until patient care is endorsed to oncoming day shift nurse.
--- NOTE | 2017-09-11 07:55 | NUR ---
OPENING NOTE PATIENT A/OX3, SLEEPING IN BED. NO COMPLAINTS OF PAIN OR DIFFICULTY BREATHING ON ROOM AIR. VITAL SIGNS TAKEN. 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 PLAN OF CARE DISCUSSED WITH PATIENT. ALL QUESTIONS AND CONCERNS ADDRESSED. SAFETY PRECAUTIONS IN ORDER, CALL LIGHT IN REACH AND BED ALARM REFUSED BY PATIENT.
[2017-09-11] MEDS ORDERED: DIPHENHYDRAMINE INJ 50 MG/ML VIAL IVP ONE (08:00)
[2017-09-11 08:38] VITALS: BP_SYST 138
--- NOTE | 2017-09-11 09:10 | NUR ---
AT BEDSIDE ASKS FOR AN UPDATE ON PLAN OF CARE. ALL QUESTIONS AND CONCERNS ADDRESSED.
--- NOTE | 2017-09-11 10:15 | NUR ---
Pain Patient complains of pain 09/16. Dilaudid 2mg IVP administered at this time, per pain scale. Will continue to monitor pain management.
[2017-09-11] MEDS: D5NS 1,000 ML IV SCH ×3 (10:16→21:36)
[2017-09-11 11:18] VITALS: BP_SYST 127
--- NOTE | 2017-09-11 12:25 | NUR ---
PATIENT RESTING: Patient resting quietly. No acute distress noted. Vital signs within normal range.
--- NOTE | 2017-09-11 14:15 | NUR ---
Rounds Patient sitting up in bed, drinking ensure that was provided from . Patient states "My Cramps hurt, I just started my period."
[2017-09-11 15:03] VITALS: BP_SYST 134
--- NOTE | 2017-09-11 15:49 | NUR ---
PAIN PATIENT COMPLAINS OF PAIN 6/10. DILAUDID 1MG IVP ADMINISTERED, PER PAIN SCALE. WILL CONTINUE TO MONITOR PATIENT'S PAIN MANAGEMENT.
--- NOTE | 2017-09-11 17:22 | NUR ---
ROUNDS PATIENT SLEEPING IN BED. NO NAUSEA OR VOMITING NOTED AT THIS TIME.
--- NOTE | 2017-09-11 18:13 | NUR ---
CLOSING NOTE PATIENT SLEEPING IN BED. AT BEDSIDE. NO SIGNS OF DISTRESS OR DISCOMFORT AT THIS TIME. ALL NEEDS MET THROUGHOUT SHIFT. WILL ENDORSE PLAN OF CARE TO NOC SHIFT. SAFETY PRECAUTIONS IN ORDER, CALL LIGHT IN REACH AND PATIENT REFUSED BED ALARM TO BE TURNED ON.
--- NOTE | 2017-09-11 19:05 | NUR ---
OPENING NOTES Bedside report received from dayshift nurse. Patient received lying in bed, AOx4, watching TV. Patient denies any pain at this time. No s/s of acute distress. Breathing is even and unlabored. IVF infusing well, IV site shows no signs of infection or infiltration. Call light with patient, instructed to call for any assistance, patient verbalized understanding. Bed alarm is off, patient refuses despite being educated on its purpose and benefits. Bed is locked and at lowest position. Will continue to monitor.
--- NOTE | 2017-09-11 19:46 | NUR ---
COMPLAIN OF PAIN Patient complained of 6/10 abdominal pain. Dilaudid administered per PRN orders. Will continue to monitor and reassess.
[2017-09-11 20:00] VITALS: BP_SYST 122; BP_SYST 177
--- NOTE | 2017-09-11 21:36 | NUR ---
ROUNDS/NEW IV BAG HUNG Patient in bed resting at this time. No signs of discomfort noted. Patient denies any pain. New IV bag hung at this time. IV site is patent, no signs of infiltration or infection. Call light with patient. Will continue to monitor.
--- NOTE | 2017-09-11 22:02 | NUR ---
TRANSFER OF CARE Bedside report given to SHIRA Baldwin. Patient in bed resting at this time. No s/s of acute distress noted. Patient denies any pain at this time. Breathing is even and unlabored. IVF infusing well, IV site patent, no signs of infiltration or infection. Call light with patient. Bed is locked and at lowest position.
--- NOTE | 2017-09-11 22:03 | NUR ---
ASSUMPTION OF CARE AT INITIAL ASSESSMENT, PATIENT IS RESTING IN BED, STABLE, NO SIGNS OF RESPIRATORY DISTRESS. PATIENT VERBALIZES TOLERABLE. PLAN OF CARE FOR THE EVENING IS COMMUNICATED WITH THE PATIENT. CALL LIGHT- TEACH BACK IS SUCCESSFUL. PATIENT IS REFUSING BED ALARM BUT IS ASSESSED WITH STEADY GAIT, SHE IS NOT FALL RISK PER GÓMEZ FALL SCALE. BED IS LOCKED, AND AT THE LOWEST LEVEL.
--- NOTE | 2017-09-12 00:01 | NUR ---
NOTE PATIENT IS SLEEPING, STABLE, NO SIGNS OF RESPIRATORY DISTRESS. CALL LIGHT WITHIN REACH. BED IS LOCKED, AND AT THE LOWEST LEVEL.
[2017-09-12] MEDS: HYDROmorphone 2 MG/ML VIAL IVP PRN ×5 (00:16→21:04)
[2017-09-12 00:31] VITALS: BP_SYST 128
--- NOTE | 2017-09-12 01:54 | NUR ---
NOTE PATIENT IS SLEEPING, STABLE, NO SIGNS OF RESPIRATORY DISTRESS. CALL LIGHT WITHIN REACH. BED IS LOCKED, AND AT THE LOWEST LEVEL.
[2017-09-12] MEDS: ONDANSETRON HCL 4 MG/2 ML VIAL IVP PRN ×5 (02:06→21:03)
[2017-09-12] MEDS: LORazepam 2 MG/ML VIAL IVP PRN ×3 (02:06→19:45)
--- NOTE | 2017-09-12 03:52 | NUR ---
NOTE PATIENT IS SLEEPING, STABLE, NO SIGNS OF RESPIRATORY DISTRESS. CALL LIGHT WITHIN REACH. BED IS LOCKED, AND AT THE LOWEST LEVEL.
--- NOTE | 2017-09-12 05:49 | NUR ---
NOTE PATIENT IS SLEEPING, STABLE, NO SIGNS OF RESPIRATORY DISTRESS. CALL LIGHT WITHIN REACH. BED IS LOCKED, AND AT THE LOWEST LEVEL.
--- NOTE | 2017-09-12 06:10 | NUR ---
IV D/C NOTE PATIENT'S IV IS NOTED TO BE INFILTRATED, OLD IV IS D/C, TIP INTACT, NO ACTIVE BLEED NOTED. PATIENT IS STABLE, NO SIGNS OF RESPIRATORY DISTRESS. CALL LIGHT WITHIN REACH. BED IS LOCKED, AND AT THE LOWEST LEVEL.
--- NOTE | 2017-09-12 06:35 | NUR ---
CLOSING NOTE PATIENT IS SLEEPING, STABLE, NO SIGNS OF RESPIRATORY DISTRESS. CALL LIGHT WITHIN REACH. BED IS LOCKED, AND AT THE LOWEST LEVEL. WILL CONTINUE TO MONITOR UNTIL SHIFT REPORT IS GIVEN AT BEDSIDE TO AM NURSE.
[2017-09-12 08:00] VITALS: BP_SYST 142
--- NOTE | 2017-09-12 08:00 | NUR ---
Note Pt resting in bed and waiting for IV insertion at this time. No SOB/resp distress or severe pain/discomfort noted. Pt has her Ensure in front of her - for breakfast. Call light within reach. Pt denies any needs at this time.
--- NOTE | 2017-09-12 08:10 | NUR ---
Note Dr Elliott on the floor and assessment completed. Pt was given clear liquids diet at this time and diet maybe advanced as tolerated per Dr Elliott's order. Pt was given clear liquids at this time. No needs noted. Call light within reach.
[2017-09-12] MEDS: D5NS 1,000 ML IV SCH ×2 (09:44→22:09)
--- NOTE | 2017-09-12 10:00 | NUR ---
Note Pt was given pain and nausea medication at this time. Pt's IV in left had intact and patent at this time infusing IVF's well. Call light within reach.
[2017-09-12 12:18] VITALS: BP_SYST 110
--- NOTE | 2017-09-12 12:30 | NUR ---
Note Pt was crying stating that she feels lonely and her cell phone is (no battery) Unable to speak to her due to phone not working. Pt was given Ativan IVP at this time. Pt attempting to eat Jello - states all food and drink making her nauseated all shift. Pt has been receiving Zofran IVP all shift as requested/scheduled. Call light within reach.
--- NOTE | 2017-09-12 14:30 | NUR ---
Note Pt unable/unwilling to eat or drink any of her diet tray for lunch. Pt drowsy and sleepy as well at this time. No needs noted. Call light within reach.
[2017-09-12 16:02] VITALS: BP_SYST 133
--- NOTE | 2017-09-12 16:30 | NUR ---
Note Pt resting in bed and has her eyes closed. IVF's infusing well.No SOB/resp distress noted at this time. Call light within reach.
--- NOTE | 2017-09-12 18:35 | NUR ---
Note Pt resting in bed with IVF's infusing well through right hand IV site. No SOB/resp distress or severe pain/discomfort or nausea noted at this time. No needs noted. Pt was checked on q1' and PRN for needs and care. Call light within reach.
--- NOTE | 2017-09-12 19:30 | NUR ---
OPENING NOTE RECEIVED PT AND REPORT FROM DAY SHIFT NURSE. PT IS SITTING UP AWAKE IN BED. PT APPEARS TEARFUL AND ANXIOUS. PT REPORTS PAIN OF 7 TO ABDOMEN RADIATING TO BACK. PT ON ROOM AIR. IV INTACT AND RUNNING IVF PER ORDERS. FALL AND SAFETY PRECAUTIONS IN PLACE. BED LOCKED IN LOWEST POSITION. BED ALARM REFUSED DESPITE EDUCATION. CALL LIGHT WITH PT. WILL ADMINISTER PRN ATIVAN FOR ANXIETY.
--- NOTE | 2017-09-12 19:48 | NUR ---
ATIVAN ADMINISTERED PRN ATIVAN FOR ANXIETY. PT RESTING IN BED. AT BEDSIDE. WILL CONTINUE TO MONITOR. CALL LIGHT WITH PT.
[2017-09-12 20:00] VITALS: BP_SYST 139
--- NOTE | 2017-09-12 21:04 | NUR ---
PRN PAIN AND NAUSEA MEDICATION/ VOMITING ADMINISTERED PRN PAIN AND NAUSEA MEDICATION. PT BEGAN VOMITING AFTER ADMINISTRATION OF MEDICATIONS. AT BEDSIDE. WILL CONTINUE TO MONITOR. CALL LIGHT WITH PT.
--- NOTE | 2017-09-12 22:13 | NUR ---
IVF ADMINISTERED IVF PER ORDERS. PT RESTING. CALL LIGHT WITH PT. WILL CONTINUE TO MONITOR.
--- NOTE | 2017-09-13 00:15 | NUR ---
ROUNDING NOTE PT IS RESTING IN BED. NO S/S OF DISTRESS OR DISCOMFORT. CALL LIGHT WITH PT. WILL CONTINUE TO MONITOR.
[2017-09-13 00:37] VITALS: BP_SYST 117
[2017-09-13] MEDS: HYDROmorphone 2 MG/ML VIAL IVP PRN ×2 (01:31→05:29)
--- NOTE | 2017-09-13 01:31 | NUR ---
PRN PAIN MEDICATION SHIRA GARRETT ADMINISTERED PRN PAIN MEDICATION FOR SEVER PAIN. WILL REASSESS PT PAIN. CALL LIGHT WITH PT.
[2017-09-13] MEDS: ONDANSETRON HCL 4 MG/2 ML VIAL IVP PRN ×4 (01:32→21:46)
--- NOTE | 2017-09-13 02:45 | NUR ---
ROUNDING NOTE PT IS SLEEPING IN BED. NO S/S OF DISTRESS OR DISCOMFORT. CALL LIGHT WITH PT. WILL CONTINUE TO MONITOR.
--- NOTE | 2017-09-13 05:33 | NUR ---
PRN PAIN MEDICATION AND NAUSEA MEDICATION ADMINISTERED PRN PAIN MEDICATION FOR SEVERE PAIN AND PRN NAUSEA MEDICATION. PT IS VOMITING AT THIS TIME, ABOUT 20 ML OF YELLOW FLUID. WILL CONTINUE TO MONITOR. CALL LIGHT WITH PT.
--- NOTE | 2017-09-13 06:28 | NUR ---
CLOSING NOTE WILL ENDORSE CARE AND REPORT TO DAY SHIFT NURSE. PT IS LAYING ASLEEP IN BED AT THIS TIME. NO S/S OF DISTRESS OR DISCOMFORT. ALL NEEDS MET THROUGHOUT SHIFT. PT IN STABLE CONDITION. NO SIGNIFICANT CHANGES TO NOTE DURING SHIFT. IV INTACT AND PATENT. PT ON ROOM AIR. CALL LIGHT WITH PT. WILL CONTINUE TO MONITOR.
[2017-09-13] MEDS: D5NS 1,000 ML IV SCH ×2 (06:55→18:34)
--- NOTE | 2017-09-13 07:10 | NUR ---
INITIAL NOTE RECEIVED PATIENT FROM ROBOTICS APPLICATION ENGINEER. PATIENT RESTING IN BED, EASILY AROUSABLE. A/Ox4. ROOM AIR. NO ACUTE DISTRESS. NO SOB. RESPIRATION EVEN AND UNLABORED. SKIN WARM AND DRY TO TOUCH. IV TO RFA INTACT AND PATENT WITH NO S/SX REDNESS/INFILTRATION NOTED. KELLY IV FLUIDS ORDERED. ORIENTED PATIENT TO CALL LIGHT AND TO USE FOR ASSIST; PT VERBALIZED UNDERSTANDING. BED IN LOW AND LOCKED POSITION. BED ALARM ON. ALL NEEDS MET. CALL LIGHT IN REACH. CONT TO MONITOR.
[2017-09-13 08:00] VITALS: BP_SYST 147
--- NOTE | 2017-09-13 08:02 | NUR ---
Nutrition Update Brando Scale 18 noted. Pt admitted for colitis Diet: clear liquid diet BMI: 20.4 kg/m2 RD to follow per nutrition care standards.
--- NOTE | 2017-09-13 08:10 | NUR ---
SEEN AND EXAMINED BY AT BEDSIDE. RECEIVED NEW ORDER FROM FOR BENADRYL ORDERED; ORDER CLARIFIED, VERIFIED AND CARRIED OUT. INFORMED PATIENTS IS REQUESTING TO TALK TO HIM; GAVE DR.SHARMA MRAI'S #[phone], PATIENTS , STATED HE WILL CALL.
--- NOTE | 2017-09-13 08:30 | NUR ---
NOTES ASSISTED PATIENT TO BATHROOM, UNSTEADY GAIT NOTED AT THIS TIME. INFORMED PATIENT TO CALL FOR ASSIST IF SHE NEEDS TO USE BATHROOM; PATIENT VERBALIZED UNDERSTANDING. BED ALARM ON . CALL LIGHT IN REACH. CONT TO MONITOR.
[2017-09-13] MEDS: DIPHENHYDRAMINE INJ 50 MG/ML VIAL IVP PRN ×2 (08:39→23:00)
--- NOTE | 2017-09-13 10:30 | NUR ---
NOTES PATIENT RESTING COMFORTABLE. VITAL SIGN STABLE. SKIN WARM AND DRY TO TOUCH. ALL NEEDS MET. CONT TO MONITOR. CALL LIGHT IN REACH.
--- NOTE | 2017-09-13 11:50 | NUR ---
Nutrition F/U Admitting Diagnosis Colitis Reviewed Pertinent Medical/Surgical Hx Medical Record Patient Primary RN Medical History Comment: Pt found w/: Abd pain, Intractable N/V, anxiety and depression per MD notes. PMH: H/O cholecystectomy per MD notes. Subjective Information Pt seen for follow up. +Nausea. Pt reported of poor appetite d/t nausea. Per RN, pt's last emesis was this morning. Pt is not eating clear liquid diet and can not advance diet yet. RN stated that stool sample is needed but pt can not have any BM since she is not eating. Per EMR, abd is soft w/ active bowel sounds. I/O: 1600/50 +1550ml per 12 hrs. PO intake: NEGLIGIBLE 13% x 2 meals 09/12/17. Pt has been on clear liquid diet for 1 day and has been NPO for 3 days prior to diet being advanced. Pt is not yet meeting adequate nutrition. Pt is not yet appropriate for nutrition education. Current Diet Order/Nutrition Support clear liquid diet x 1 day Patient/Significant Other Able To Verbalize Education Provided Not Indicated Pertinent Medications ativan inj, zofran, D5/NaCl IV Pertinent Labs BG 99 WNL (improved), Alb 3.4 WNL (improved). WBC 4.3 L, RBC 4 L, K 3 L, BUN 1 L Height (Feet) 5 feet Height (Inches) 7.00 inches Weight (Pounds) 130 pounds Weight (Calculated Kilograms) 58.044217 kilograms Patient Weight 58.967 kg Body Mass Index 20.36 kg/m2 %IBW 96 [place]/Adjusted Body Weight 135 lb, 61 kg Recent Weight Change No - per pt Weight Status Appropriate Gastrointestinal Symptoms Nausea Vomiting Last BM Sep 09, 2017 Food Allergies No Usual Diet At Home Low fiber/IBD diet per pt Skin Integrity Comment: Brando scale: 20; No skin breakdown noted. Current % PO NEGLIGIBLE 13% Estimated Energy Expenditure (kcals/day) 6201-5583 kcal/day (30-35 kcal/kg CBW for maintenance) Estimated Protein Required (g/day) 47-71 g/day (.8-1.2 g/kg CBW for maintenance) Estimated Fluid Required (l/day) 1.8-2 L/day (1ml/calorie) Problem/Etiology/Signs/Symptoms Inadequate nutritional intake related to GI dysfunction as evidenced by N/V, abd pain, NPO status and negligible oral intake PHARMACY AIDE. *ONGOING Expected Outcomes/Goals Monitor pt appetite and PO intake w/ goal of pt meeting at least 50% of estimated nutritional needs, labs trending WNL, normal GI function, skin integrity/wt maintenance. Dietitian Recommendations *Recommend continue clear llquid diet per MD *Recommend advance diet when medically appropriate (GI Soft) Follow Up High Risk: F/U in 2-3days
--- NOTE | 2017-09-13 12:02 | NUR ---
Dietitian Recommendations *Recommend continue clear llquid diet per MD *Recommend advance diet when medically appropriate (GI Soft). Please see Nutrition F/U note for details. SUNDAY, Rd
[2017-09-13 12:32] VITALS: BP_SYST 116
--- NOTE | 2017-09-13 12:37 | NUR ---
SPOKE TO ON PHONE. ORDERED URINE DRUG SCREEN; ORDER CARRIED OUT. CONT TO MONITOR.
--- NOTE | 2017-09-13 13:00 | NUR ---
NOTES ASSISTED PATIENT TO BATHROOM, KELLY WELL. STABLE. ALL NEEDS MET. CONT TO MONITOR. BED ALARM ON.
--- NOTE | 2017-09-13 15:00 | NUR ---
DR.JANDIAL RODNEY AT [facility]. REPORTED TO MD PATIENT IS ASKING TO BE DISCHARGED. PER HE WILL NOT DISCHARGE PATIENT AT THIS TIME. PATIENT WILL HAVE TO LEAVE AMA. MADE PATIENT AWARE.
--- NOTE | 2017-09-13 15:40 | NUR ---
URINE URINE COLLECTED FOR DRUG SCREEN AND TAKEN TO LAB. PATIENT STABLE. NO ACUTE DISTRESS. NO SOB. SKIN WARM AND DRY TO TOUCH. ALL NEEDS MET. CONT TO MONITOR.
[2017-09-13 16:01] VITALS: BP_SYST 148
[2017-09-13 16:04] LABS: BARBITURATE, URINE NEGATIVE (NEG <=200); BENZODIAZEPINE, URINE POSITIVE (NEG <=150); CANNABINOID, URINE POSITIVE (NEG <=50); COCAINE, URINE NEGATIVE (NEG <=150); METHAMPHETAMINES SCREEN,URINE NEGATIVE (NEG <=500); PHENCYCLIDINE SCREEN,URINE NEGATIVE (NEG <=25); URINE AMPHETAMINE NEGATIVE (NEG <=500); URINE METHADONE NEGATIVE (NEG <=200)
[2017-09-13 16:05] LABS: OPIATE, URINE POSITIVE (NEG <=100); UR TRICYCLIC ANTIDEPRESSANTS NEGATIVE (NEG <=300); URINE OXYCODONE SCREEN NEGATIVE (NEG <=100); URINE PROPOXYPHENE SCREEN NEGATIVE (NEG <=300)
[2017-09-13] MEDS: HYDROmorphone 1 MG INJ. 1 MG/ML AMPUL IVP PRN ×2 (16:22→21:46)
--- NOTE | 2017-09-13 16:22 | NUR ---
PAIN PATIENT C/O SEVERE ABD PAIN AND NAUSEA. ASSISTED WITH REPOSITIONING. HOB UP. MEDICATED ORDERED, KELLY WELL. ALL NEEDS MET. CALL LIGHT IN REACH. CONT TO MONITOR. BED ALARM ON.
--- NOTE | 2017-09-13 18:40 | NUR ---
CLOSING NOTE PATIENT RESTING IN BED. NOTED RISE AND FALL OF CHEST. STABLE. NO ACUTE DISTRESS. NO SOB. RESPIRATION EVEN AND UNLABORED. SKIN WARM AND DRY TO TOUCH. KELLY IV FLUIDS ORDERED. ALL NEEDS MET. CALL LIGHT IN REACH. BED LOW AND LOCKED. SIDERAIL UP X2. BED ALARM ON . CALL LIGHT IN REACH. CONT TO MONITOR.
--- NOTE | 2017-09-13 19:00 | NUR ---
OPENING NOTE Received report from SHIRA Hummel. Patient resting in bed awake, alert, oriented x4. Breathing unlabored and even. No signs of distress, no needs at this time. Fall and safety precautions in place. Bed in lowest position, brake on, call light within reach. Bed alarm refused. IVF infusing as ordered. Will continue to monitor.
[2017-09-13] MEDS: LORazepam 2 MG/ML VIAL IVP PRN (19:43)
--- NOTE | 2017-09-13 19:50 | NUR ---
Patient c/o anxiety. Administered PRN ativan 1mg IVP as ordered. Educated pt on safety and side effects. Encouraged call for assist. Patient vomited yellow liquid, pt stated she ate a yellow jello 3 hours ago. Patient refused to eat dinner tray, 0% eaten. Informed pt that zofran isn't due for another 30 min. Provided 2 ice packs at patient's request. Will continue to monitor.
[2017-09-13 20:00] VITALS: BP_SYST 148
--- NOTE | 2017-09-13 20:57 | NUR ---
Pt requested ice pack and ice chips
--- NOTE | 2017-09-13 21:49 | NUR ---
Pt c/o nausea and pain. SHIRA Boyce administered PRN dilaudid 1mg IVP and PRN zofran 4mg IVP as ordered.
--- NOTE | 2017-09-13 23:04 | NUR ---
Administered PRN benadryl IVP as ordered. Educated pt on side effects and safety. Encouraged call for assist.
--- NOTE | 2017-09-14 01:10 | NUR ---
Patient resting in bed with eyes closed. Breathing unlabored and even. No signs of distress, no needs at this time. Fall and safety precautions in place. Bed in lowest position, brake on, call light within reach. Bed alarm refused. IVF infusing as ordered. Will continue to monitor.
[2017-09-14 01:23] VITALS: BP_SYST 141
[2017-09-14] MEDS: HYDROmorphone 1 MG INJ. 1 MG/ML AMPUL IVP PRN ×4 (03:38→23:39)
[2017-09-14] MEDS: ONDANSETRON HCL 4 MG/2 ML VIAL IVP PRN ×3 (03:38→23:42)
--- NOTE | 2017-09-14 03:45 | NUR ---
Pt c/o nausea and pain. Administered PRN zofran IVP and PRN Dilaudid IVP as ordered. Educated pt on safety and side effects. Encouraged call for assist.
[2017-09-14] MEDS: D5NS 1,000 ML IV SCH ×2 (05:46→16:02)
--- NOTE | 2017-09-14 05:47 | NUR ---
New IVF hung
--- NOTE | 2017-09-14 07:20 | NUR ---
CLOSING NOTE Patient resting in bed with eyes closed. Breathing unlabored and even. No signs of distress, no needs at this time. Fall and safety precautions in place. Bed in lowest position, brake on, call light within reach. Bed alarm refused. IVF infusing as ordered. Endorsed care to SHIRA Hummel.
--- NOTE | 2017-09-14 07:35 | NUR ---
SEEN AND EXAMINED BY TODAY. AT THIS TIME PATIENT REFUSED EGD DONE. STATED HE WILL CALL PATIENT'S TODAY WITH AN UPDATE AND WILL ALSO CONSULT WITH .
--- NOTE | 2017-09-14 07:48 | NUR ---
INITIAL NOTE RECEIVED REPORT FROM APPEALS ANALYST. PATIENT SITTING UP IN BED AWAKE DRINKING ENSURE KELLY. ALERT AND ORIENTED. ROOM AIR. NO ACUTE DISTRESS. NO SOB. RESPIRATION EVEN AND UNLABORED. SKIN WARM AND DRY TO TOUCH. IV INTACT TO RFA AND KELLY IV FLUID ORDERED. BED IN LOW AND LOCKED POSITION. SIDERAIL UP X2. BED ALARM ON . CALL LIGHT IN REACH. CONT TO MONITOR.
[2017-09-14 08:00] VITALS: BP_SYST 123
--- NOTE | 2017-09-14 09:15 | NUR ---
SEEN AND EXAMINED BY AT BEDSIDE. ALL NEEDS MET. CONT TO MONITOR. CALL LIGHT IN REACH.
[2017-09-14] MEDS: DIPHENHYDRAMINE INJ 50 MG/ML VIAL IVP PRN ×3 (09:33→22:20)
--- NOTE | 2017-09-14 09:33 | NUR ---
NOTES PATIENT STABLE. BENADRYL ADMINISTERED ORDERED, KELLY WELL. NO ACUTE DISTRESS. NO SOB. RESPIRATION EVEN AND UNLABORED. SKIN WARM AND DRY TO TOUCH. ALL NEEDS MET. CONT TO MONITOR.
--- NOTE | 2017-09-14 10:00 | NUR ---
NOTES ASSISTED PATIENT TO BATHROOM, KELLY WELL. ALL NEEDS MET. CALL LIGHT IN REACH. CONT TO MONITOR.
--- NOTE | 2017-09-14 12:30 | NUR ---
SPOKE TO REGARDING EGD. INFORMED MD PATIENT IS NOW WILLING TO DO PROCEDURE. RECEIVED NEW ORDER FOR EGD 09/15/17 AND NPO AFTER MIDNIGHT. CONT TO MONITOR.
[2017-09-14 12:32] VITALS: BP_SYST 133
--- NOTE | 2017-09-14 13:25 | NUR ---
PAIN PATIENT C/O SEVERE ABD PAIN. DILAUDID ADMINISTER ORDERED, KELLY WELL. NO VOMITING NOTED AT THIS TIME. ALL NEEDS MET. CONT TO MONITOR. CALL LIGHT IN REACH.
--- NOTE | 2017-09-14 16:05 | NUR ---
IVF NEW BAG OF IV FLUID HUNG ORDERED. PATIENT KELLY WELL. IV SITE INTACT AND PATENT WITH NO S/SX INFECTION/INFILTRATION NOTED. ALL NEEDS MET. CONT TO MONITOR. PARENTS AT BEDSIDE. Addendum: 09/14/17 at 1751 by Estephanie Harvey RN PATIENT C/O NAUSEA. ZOFRAN ADMINISTERED ORDERED. KELLY WELL. ALL NEEDS MET. CONT TO MONITOR.
[2017-09-14 16:17] VITALS: BP_SYST 135
--- NOTE | 2017-09-14 17:52 | NUR ---
NOTES PATIENT STABLE AT THIS TIME. NO ACUTE DISTRESS. NO SOB. NO VOMITING NOTED AT THIS TIME. ALL NEEDS MET. CONT TO MONITOR. CALL LIGHT IN REACH.
--- NOTE | 2017-09-14 18:55 | NUR ---
CLOSING NOTE PATIENT STABLE. SITTING UP IN BED ON PHONE. NO ACUTE DISTRESS. NO SOB. RESPIRATION EVEN AND UNLABORED. SKIN WARM AND DRY TO TOUCH. IV TO RFA INTACT AND PATENT. ALL NEEDS MET. CALL LIGHT IN REACH. CONT TO MONITOR. WILL ENDORSE TO ONCOMING SHIFT. Addendum: 09/14/17 at 2005 by Estephanie Harvey RN PATIENT AWARE TO BE NPO AFTER MIDNIGHT FOR EGD PROCEDURE TOMORROW. WILL ENDORSE.
--- NOTE | 2017-09-14 19:00 | NUR ---
OPENING NOTE Received report from SHIRA Hummel. Patient resting in bed awake, alert, oriented x4. Breathing unlabored and even. No signs of distress, no needs at this time. Fall and safety precautions in place. Bed in lowest position, brake on, call light within reach. Alarm refused. IVF infusing as ordered. Patient will have EGD in the AM. Consent to be signed after MD talks to patient in AM. Patient aware. Patient will be NPO after midnight. Will continue to monitor.
[2017-09-14 20:58] VITALS: BP_SYST 146
--- NOTE | 2017-09-14 22:24 | NUR ---
Administered PRN benadryl IVP as ordered. Educated pt on side effects and safety. Encouraged call for assist.
--- NOTE | 2017-09-14 23:44 | NUR ---
Pt c/o nausea and pain. Administered PRN dilaudid IVP and PRN zofran IVP as ordered. Educated pt on safety and side effects. Encouraged call for assist.
[2017-09-15 01:45] VITALS: BP_SYST 140
--- NOTE | 2017-09-15 01:51 | NUR ---
Pt c/o itching. Informed her that her benadryl isnt due yet. Gave her ice packs for now and will return when benadryl is due to re-evaluate patient.
[2017-09-15] MEDS: DIPHENHYDRAMINE INJ 50 MG/ML VIAL IVP PRN ×4 (02:25→23:33)
--- NOTE | 2017-09-15 02:28 | NUR ---
Pt still c/o itching. Administered PRN benadryl IVP as ordered. Educated pt on safety and side effects. Encouraged call for assist.
[2017-09-15] MEDS: D5NS 1,000 ML IV SCH ×2 (02:41→14:42)
--- NOTE | 2017-09-15 02:42 | NUR ---
New IVF hung
[2017-09-15] MEDS: ONDANSETRON HCL 4 MG/2 ML VIAL IVP PRN ×4 (04:49→22:10)
[2017-09-15] MEDS: HYDROmorphone 1 MG INJ. 1 MG/ML AMPUL IVP PRN ×4 (04:50→22:10)
--- NOTE | 2017-09-15 04:54 | NUR ---
Pt c/o nausea and pain. Administered PRN zofran IVP and PRN dilaudid IVP as ordered. Educated pt on safety and side effects. Encouraged call for assist.
--- NOTE | 2017-09-15 06:48 | NUR ---
CLOSING NOTE Patient resting in bed with eyes closed. Breathing unlabored and even. No signs of distress, no needs at this time. All needs met throughout shift. Fall and safety precautions in place throughout shift. Bed in lowest position, brake on, call light within reach. IVF infusing as ordered. Patient will have EGD today. Consent to still be signed by patient after MD talks to patient. Patient is NPO. Will endorse cares to day shift nurse.
--- NOTE | 2017-09-15 07:30 | NUR ---
Opening Note received report from workers compensation claims specialist RN, pt resting in bed, A&Ox4, respirations even and unlabored on room air, pain controlled at this time, IV site clean, dry, intact, and infusing well, pt NPO at this time for EGD this AM, pt ambulated to bathroom, steady gait noted, pt ambulated back to bed, pt educated on use of call light and asked to call for assistance, pt verbalized understanding, call light in reach, pt educated on use of bed alarm for pt safety, pt refusing bed alarm at this time, bed in low position, fall and aspiration precautions in place.
--- NOTE | 2017-09-15 07:40 | NUR ---
OR pt taken to OR via gurney, pt stable, no acute distress noted, fall and aspiration precautions in place.
[2017-09-15 08:00] VITALS: BP_SYST 142
[2017-09-15] MEDS ORDERED: LR 1,000 ML IV.SOLN IV ONE ×2 (08:25)
[2017-09-15] MEDS ORDERED: PROPOFOL 200MG/ 20ML VIAL (DIPRIVAN) IV ONE ×2 (08:25)
[2017-09-15] MEDS ORDERED: MIDAZOLAM HCL 5 MG/ML VIAL (VERSED) IV ONE ×2 (08:25)
[2017-09-15] MEDS ORDERED: ONDANSETRON HCL 4 MG/2 ML VIAL IVP PRN (08:30)
[2017-09-15] MEDS ORDERED: fentaNYL CITRATE/PF 100 MCG/2 ML AMP IVP PRN ×2 (08:30)
--- NOTE | 2017-09-15 08:50 | NUR ---
OR pt back on floor from OR, received report from PACU nurse, pt stable, vital signs stable, BP 123/67, heart rate 77, O2Sat 99%, respirations 17, temperature 97.8, pt denies any pain or nausea at this time, no additional needs at this time, pt connected to IV fluids as ordered, fall and aspiration precautions in place, mother at bedside.
[2017-09-15] MEDS ORDERED: ERYTHROMYCIN BASE 500 MG TABLET PO ONE (09:00)
[2017-09-15] MEDS ORDERED: PANTOPRAZOLE SODIUM 40 MG/VIAL (PROTONIX) IVP ONE (09:15)
--- NOTE | 2017-09-15 09:35 | NUR ---
Pain Management/Nausea/Medication pt complaint of pain 10/10 to abdomen, pt complaint of nausea, pt educated on use and side effects of PRN pain medication, nausea medication, and all medications, pt verbalized understanding, tolerated medication administration well, no additional needs at this time, pts mother at bedside, fall and aspiration precautions in place.
--- NOTE | 2017-09-15 10:04 | NUR ---
Spoke with Spoke with Dr. Elliott, orders to change from NPO to clear liquids, okay to give PO erythromycin.
--- NOTE | 2017-09-15 10:18 | NUR ---
Medication pt educated on medication use and side effects, pt verbalized understanding, tolerated medication administration well, mother at bedside, no additional needs at this time, fall and aspiration precautions in place.
--- NOTE | 2017-09-15 12:07 | NUR ---
Itching pt complaint of itching, pt educated on use and side effects of PRN benadryl, pt verbalized understanding, tolerated medication administration well, no additional needs at this time, fall and aspiration precautions in place.
[2017-09-15 12:29] VITALS: BP_SYST 129
--- NOTE | 2017-09-15 14:44 | NUR ---
RN Rounds new IV fluids hung at this time, pt complaint of nausea, pt educated on use of PRN zofran, pt refusing PRN zofran at this time, no additional needs at this time, fall and aspiration precautions in place.
--- NOTE | 2017-09-15 15:35 | NUR ---
Pain Management/Medication pt complaint of pain 10/17 to abdomen, pt educated on use and side effects of PRN pain medications, pt verbalized understanding, tolerated medication administration well, no additional needs at this time, fall and aspiration precautions in place.
[2017-09-15 16:37] VITALS: BP_SYST 139
[2017-09-15] MEDS ORDERED: ERYTHROMYCIN BASE 500 MG TABLET PO SCH (17:00)
[2017-09-15] MEDS: LORazepam 2 MG/ML VIAL IVP PRN (17:34)
--- NOTE | 2017-09-15 17:34 | NUR ---
Ativan pt complaint of anxiety, pt educated on use and side effects of PRN ativan, pt verbalized understanding, tolerated medication administration well, no additional needs at this time, fall and aspiration precautions in place.
--- NOTE | 2017-09-15 17:58 | NUR ---
Spoke with MD Spoke with Dr. Mott (front maker for Dr. Elliott), informed MD that pt is throwing up, pt requesting to not take PO erythromycin, informed that pt received ativan, orders to discontinue PO erythromycin and give IV benadryl now.
--- NOTE | 2017-09-15 18:15 | NUR ---
Medication pt educated on medication use and side effects, pt verbalized understanding, tolerated medication administration well, no additional needs at this time, fall and aspiration precautions in place.
--- NOTE | 2017-09-15 19:10 | NUR ---
Closing Note pt resting in bed, A&Ox4, respirations even and unlabored on room air, pain controlled at this time, no nausea or vomiting at this time, IV site clean, dry, intact and infusing well, pt mother at bedside, pt educated on use of call light and asked to call for assistance, pt verbalized understanding, pt educated on use of bed alarm for pt safety, pt refusing bed alarm at this time, bed in low position, fall and aspiration precautions in place, care endorsed to security shift supervisor RN.
--- NOTE | 2017-09-15 19:11 | NUR ---
OPENING NOTE Received report from SHIRA Wallace>. Patient resting in bed awake, alert, oriented x4. Currently eat broth. Mother at the bedside. Breathing unlabored and even. No signs of distress, no needs at this time. Fall and safety precautions in place. Bed in lowest position, brake on, call light within reach. IVF infusing as ordered. IV site patent, clean, dry, intact. Will continue to monitor.
[2017-09-15 20:09] VITALS: BP_SYST 122
[2017-09-15] MEDS: PANTOPRAZOLE SODIUM 40 MG/VIAL (PROTONIX) IVP SCH (20:11)
--- NOTE | 2017-09-15 22:01 | NUR ---
Pt had small loose bowel movement. Collected and sent to lab for testing. Addendum: 09/15/17 at 2321 by Holly Solorzano RN Pt still needs to have 2 more bowel movements before c. diff sample can be collected. C. Diff form in SBAR folder.
--- NOTE | 2017-09-15 22:26 | NUR ---
Pt c/o nausea and pain. Administered PRN zofran IVP and PRN dilaudid IVP as ordered. Educated pt on safety and side effects. Encouraged call for assist.
--- NOTE | 2017-09-15 23:36 | NUR ---
Administered PRN benadryl IVP as ordered. Educated pt on safety and side effects. Encouraged call for assist.
[2017-09-16 00:38] VITALS: BP_SYST 125; BP_SYST 143
--- NOTE | 2017-09-16 01:00 | NUR ---
Patient resting in bed with eyes closed. Breathing unlabored and even. No signs of distress, no needs at this time. Fall and safety precautions in place. Bed in lowest position, brake on, call light within reach. IVF infusing as ordered. Will continue to monitor.
[2017-09-16] MEDS: D5NS 1,000 ML IV SCH ×2 (02:10→10:00)
--- NOTE | 2017-09-16 02:11 | NUR ---
New IVF hung
[2017-09-16] MEDS: ONDANSETRON HCL 4 MG/2 ML VIAL IVP PRN (04:36)
[2017-09-16] MEDS: HYDROmorphone 1 MG INJ. 1 MG/ML AMPUL IVP PRN (04:37)
--- NOTE | 2017-09-16 04:39 | NUR ---
Administered PRN dilaudid IVP and PRN zofran as ordered. Educated pt on safety and side effects. Encouraged call for assist.
[2017-09-16] MEDS: DIPHENHYDRAMINE INJ 50 MG/ML VIAL IVP PRN (05:50)
--- NOTE | 2017-09-16 05:52 | NUR ---
Administered PRN benadryl IVP as ordered. Educated pt on safety and side effects. Encouraged call for assist.
--- NOTE | 2017-09-16 07:18 | NUR ---
CLOSING NOTE Patient resting in bed with eyes closed. Breathing unlabored and even. No signs of distress, no needs at this time. All needs met throughout shift. Fall and safety precautions in place throughout shift. Bed in lowest position, brake on, call light within reach. IVF infusing as ordered. Endorsed care to day shift nurseColeen.
--- NOTE | 2017-09-16 07:30 | NUR ---
INITIAL NOTE RECEIVED PT IN BED, NO S/S OF DISTRESS OR SOB NOTED, PT HAS NO C/O PAIN AT THIS TIME, PT IN STABLE CONDITION, PT AAOX4, VERBAL, PT HAS AN IV CATHETER, PATENT, NO SIGNS OF INFECTION OR INFILTRATION NOTED, IV FLUIDS RUNNING ORDERED, BED AT LOWEST POSITION, CALL LIGHT WITHIN REACH, WILL CONTINUE TO MONITOR PT FOR ANY CHANGES, FALL AND SAFETY PRECAUTIONS IN PLACE. NO NAUSEA OR VOMITING.
[2017-09-16 08:30] VITALS: BP_SYST 120
[2017-09-16] MEDS: PANTOPRAZOLE SODIUM 40 MG/VIAL (PROTONIX) IVP SCH (09:59)
--- NOTE | 2017-09-16 10:20 | NUR ---
ROUNDS PT IN BED, NO S/S OF DISTRESS OR SOB NOTED, PT HAS NO C/O PAIN AT THIS TIME, PT IN STABLE CONDITION, PT TALKING TO DR WOODS WHO IS AT BEDSIDE WITH PRESENT. WILL CONTINUE TO MONITOR PT FOR ANY CHANGES.
[2017-09-16 10:50] VITALS: BP_SYST 120
--- NOTE | 2017-09-16 11:10 | NUR ---
D/C Patient Patient given medication reconciliation form and D/C instructions. Exit Care provided. Patient verbalized understanding. MD discussed with patient the results and treatment provided. Ambulatory with steady gait for discharge to home. Patient in stable condition, ID band removed. IV catheter removed, intact and dressing applied, no active bleeding. Patient educated on pain management. All belongings sent with patient. Educated by MD Dr Garsia to stop smoking marijuana and patient verbalized understanding.
[2017-09-16 12:57] VITALS: BP_SYST 128
== END 2017-09-16 11:10 | disposition home or self-care (01) | DRG 392 ==
LOC: SED 07:09 → SMU 10:06
PROVIDERS: ADMIT Internal Medicine Hospice and Palliative Medicine; ATTEND Internal Medicine Hospice and Palliative Medicine
PROC: 0DB68ZX Excision of Stomach, Via Natural or Artificial Opening Endoscopic, Diagnostic (ICD-10-PCS; 2017-09-15)
PROC: 0D778ZZ Dilation of Stomach, Pylorus, Via Natural or Artificial Opening Endoscopic (ICD-10-PCS; 2017-09-15)
PROC: 0DB98ZX Excision of Duodenum, Via Natural or Artificial Opening Endoscopic, Diagnostic (ICD-10-PCS; principal; 2017-09-15 07:30)
DX: K58.0 Irritable bowel syndrome with diarrhea (principal); G43.A1 Cyclical vomiting, in migraine, intractable; F41.9 Anxiety disorder, unspecified; K29.00 Acute gastritis without bleeding; F12.90 Cannabis use, unspecified, uncomplicated; K52.9 Noninfective gastroenteritis and colitis, unspecified; K31.84 Gastroparesis; F32.9 Major depressive disorder, single episode, unspecified; Z88.5 Allergy status to narcotic agent; Z88.8 Allergy status to other drugs, medicaments and biological substances; Z90.49 Acquired absence of other specified parts of digestive tract; Z79.899 Other long term (current) drug therapy
CPT/HCPCS: 36415; 80053; 80307; 81000-TC; 82272; 83605; 83690-TC; 84702-TC; 85025; 87040-TC; 87045-TC; 87046; 87081; 87177; 88305; 88312; 88313; 89055; C9113; J1170; J1200; J2060; J2250; J2405; J2543; J2704; J3370; J3480; J7030; J7042; J7050; J7120

== ENCOUNTER 2018-02-10 03:03 | Emergency (ER) | payer BC ==
[~2018-02-10] VITALS: Ht 167.6 cm; Wt 56.7 kg
[2018-02-10 03:05] VITALS: BP_SYST 151
[2018-02-10] MEDS ORDERED: ONDANSETRON 4 MG ODT TAB PO ONE (03:30)
[2018-02-10] MEDS ORDERED: LORazepam 2 MG/ML VIAL (FOR ER USE) IVP ONE (03:45)
[2018-02-10] MEDS ORDERED: MORPHINE 4 MG/ML INJ. SYRINGE IVP ONE ×2 (03:45→04:30)
[2018-02-10] MEDS ORDERED: DIPHENHYDRAMINE INJ 50 MG/ML VIAL IVP ONE (03:45)
[2018-02-10 05:57] VITALS: BP_SYST 148
== END 2018-02-10 05:57 | disposition home or self-care (01) ==
LOC: SED 03:03
DX: G89.29 Other chronic pain (principal); R10.13 Epigastric pain; R11.2 Nausea with vomiting, unspecified; R03.0 Elevated blood-pressure reading, without diagnosis of hypertension; Z90.49 Acquired absence of other specified parts of digestive tract; Z88.8 Allergy status to other drugs, medicaments and biological substances
CPT/HCPCS: 96374; 96375; 96376; 99283; J1200; J2060; J2270; Q0162